=== PATIENT | female | born 1945 | race Caucasian/White ===

== ENCOUNTER 2016-12-14 13:29 | Outpatient (CLI) | payer MEDICARE, OTHER | END 2016-12-14 13:30 | disposition home or self-care (01) | DX: Z12.31 Encounter for screening mammogram for malignant neoplasm of breast (principal); Z80.3 Family history of malignant neoplasm of breast ==

== ENCOUNTER 2017-11-25 08:00 | Outpatient (CLI) | payer MEDICARE, OTHER ==
[2017-11-25 19:01] LABS: BASOPHILS # (AUTO) 0.1 10^3/uL (0.0-0.1); BASOPHILS % (AUTO) 1.3 %; EOSINOPHILS # (AUTO) 0.3 10^3/uL (0.0-0.7); EOSINOPHILS % (AUTO) 2.6 %; HGB - HEMOGLOBIN 12.5 g/dL (12.0-16.0); LYMPHOCYTES # (AUTO) 2.2 10^3/uL (1.5-3.5); MEAN CORPUSCULAR HEMOGLOBIN 24.1 pg (27.0-31.0); MEAN CORPUSCULAR HGB CONC 31.3 g/dL (32.0-36.0); MEAN CORPUSCULAR VOLUME 77.1 fL (81.0-99.0); MEAN PLATELET VOLUME 7.2 fL (7.9-10.8); MONOCYTES # (AUTO) 0.8 10^3/uL (0.0-1.0); MONOCYTES % (AUTO) 7.5 %; NEUTROPHILS # (AUTO) 6.7 10^3/uL (1.5-6.6); NEUTROPHILS % (AUTO) 66.6 %; PLT - PLATELET COUNT 443 10^3/uL (130-450); RED BLOOD COUNT 5.16 10^6/uL (4.20-5.40); RED CELL DISTRIBUTION WIDTH 15.6 % (12.0-15.0); WHITE BLOOD COUNT 10.1 x10^3/uL (4.8-10.8)
[2017-11-25 19:11] LABS: ALBUMIN 4.6 g/dL (3.2-5.5); ALBUMIN/GLOBULIN RATIO 1.5 (1.0-2.2); BILIRUBIN,TOTAL 0.4 mg/dL (0.2-1.0); CALCIUM 8.4 mg/dL (8.5-10.3); CREATININE 0.8 mg/dL (0.4-1.0); TOTAL PROTEIN 7.7 g/dL (6.7-8.2)
== END 2017-11-25 08:01 | disposition home or self-care (01) ==
LOC: LAB.WCP 08:00
PROVIDERS: ATTEND Family Medicine
DX: I10 Essential (primary) hypertension (principal)
CPT/HCPCS: 36415; 80053; 85025

== ENCOUNTER 2017-11-29 08:00 | Outpatient (CLI) | payer MEDICARE, OTHER ==
[2017-11-29 19:39] LABS: % IRON SATURATION 11 % (20-50); IRON 52 ug/dL (28-170); TOTAL IRON BINDING CAPACITY 469 ug/dL (250-450); TRANSFERRIN 335 mg/dL (192-382)
== END 2017-11-29 08:01 | disposition home or self-care (01) ==
LOC: LAB.WCP 08:00
PROVIDERS: ATTEND Family Medicine
DX: R71.8 Other abnormality of red blood cells (principal)
CPT/HCPCS: 36415; 82728; 83540; 84466

== ENCOUNTER 2017-12-15 13:14 | Outpatient (CLI) | payer MEDICARE, OTHER ==
--- NOTE | 2017-12-15 15:53 | CT Report ---
CT CHEST WITHOUT CONTRAST: 12/15/2017 CLINICAL INDICATION: A 72-year-old asymptomatic patient with [id number] history of smoking, current smoker for lung cancer screening. COMPARISON: No previous CT is available for comparison. TECHNIQUE: Axial CT images of the chest were obtained without IV contrast, using low-dose screening technique. FINDINGS: The heart and great vessels demonstrate mild atherosclerotic calcifications. No hilar or mediastinal lymphadenopathy is present. The lungs demonstrate multiple bilateral calcified granulomas. No suspicious noncalcified pulmonary nodule is seen. Minimal basilar atelectasis is present. No effusion or pneumothorax is present. Limited evaluation of upper abdominal structures demonstrates normal adrenal glands. Osseous structures demonstrate degenerative changes. IMPRESSION: BENIGN FINDINGS, WITH MULTIPLE BILATERAL CALCIFIED GRANULOMAS. RECOMMENDATION: Continue routine annual screening with low dose chest CT in 12 months. LUNG RADS CATEGORY 2 - BENIGN APPEARANCE. CT DOSE REDUCTION STATEMENT: In accordance with CT protocol optimization, one or more of the following dose reduction techniques were utilized for this exam: automated exposure control, adjustment of mA and/or KV based on patient size, or use of iterative reconstructive technique. TD: 12/15/2017 15:09 DUGLAS
== END 2017-12-15 13:15 | disposition home or self-care (01) ==
LOC: DI 13:14
PROVIDERS: ATTEND Family Medicine
DX: Z12.2 Encounter for screening for malignant neoplasm of respiratory organs (principal); Z87.891 Personal history of nicotine dependence

== ENCOUNTER 2018-01-05 11:34 | Day surgery (SDC) | payer MEDICARE, OTHER ==
[2018-01-05] MEDS ORDERED: LACTATED RINGERS 1,000 ML IV ONE (11:40)
[2018-01-05] MEDS ORDERED: fentaNYL 250 MCG/5 ML VIAL IVP ONE (12:50)
[2018-01-05] MEDS ORDERED: MIDAZOLAM 2 MG/2 ML VIAL IVP ONE (12:50)
[2018-01-05 14:04] VITALS: BP 142/43
== END 2018-01-05 11:35 | disposition home or self-care (01) ==
LOC: SDS 11:34
PROVIDERS: ATTEND Internal Medicine Gastroenterology
PROC: 0DBN8ZX Excision of Sigmoid Colon, Via Natural or Artificial Opening Endoscopic, Diagnostic (ICD-10-PCS; principal; 2018-01-05 12:45)
DX: D12.5 Benign neoplasm of sigmoid colon (principal); K57.30 Diverticulosis of large intestine without perforation or abscess without bleeding; K64.8 Other hemorrhoids; E78.5 Hyperlipidemia, unspecified; I10 Essential (primary) hypertension; F17.210 Nicotine dependence, cigarettes, uncomplicated
CPT/HCPCS: 45380; 93005; J3010; J7120

== ENCOUNTER 2018-08-17 06:43 | Day surgery (SDC) | payer MEDICARE, OTHER ==
[2018-08-17] MEDS ORDERED: LACTATED RINGERS 1,000 ML IV ONE (07:18)
[2018-08-17] MEDS ORDERED: LIDO GARGLE 30 ML BOTTLE ONE (08:04)
[2018-08-17] MEDS ORDERED: LIDO GARGLE 30 ML BOTTLE PO ONE (08:07)
[2018-08-17] MEDS ORDERED: fentaNYL 100 MCG/2 ML VIAL IVP ONE (08:20)
[2018-08-17] MEDS ORDERED: MIDAZOLAM 2 MG/2 ML VIAL IVP ONE (08:20)
[2018-08-17 08:56] VITALS: BP 110/45
== END 2018-08-17 06:44 | disposition home or self-care (01) ==
LOC: SDS 06:43
PROVIDERS: ATTEND Internal Medicine Gastroenterology
PROC: 0DB78ZX Excision of Stomach, Pylorus, Via Natural or Artificial Opening Endoscopic, Diagnostic (ICD-10-PCS; 2018-08-17)
PROC: 0DB98ZX Excision of Duodenum, Via Natural or Artificial Opening Endoscopic, Diagnostic (ICD-10-PCS; principal; 2018-08-17 08:00)
DX: K29.50 Unspecified chronic gastritis without bleeding (principal); D50.8 Other iron deficiency anemias; I10 Essential (primary) hypertension; F17.210 Nicotine dependence, cigarettes, uncomplicated; I49.1 Atrial premature depolarization; E78.5 Hyperlipidemia, unspecified; M81.0 Age-related osteoporosis without current pathological fracture; Z79.82 Long term (current) use of aspirin; Z79.51 Long term (current) use of inhaled steroids; J30.9 Allergic rhinitis, unspecified; Z86.010 Personal history of colon polyps
CPT/HCPCS: 43239; A9270; J7120

== ENCOUNTER 2018-11-09 13:23 | Outpatient (CLI) | payer MEDICARE, OTHER ==
--- NOTE | 2018-11-09 14:21 | Mammography Report ---
Reason: SCREENING MAMMO Procedure Date: 11/09/2018 Accession Number: [id number] / [id number] Procedure: MGN - Screening Mammo Dig Bilat CPT Code: FULL RESULT: EXAM: Screening Mammo Dig Bilat DATE: 11/09/2018 2:01 PM CLINICAL HISTORY: Screening encounter. Family history of breast cancer in the mother in her 40s. TECHNIQUE: Bilateral CC and MLO views were obtained. COMPARISON: 12/14/2016 through 07/03/2013. FINDINGS: The breasts demonstrate scattered fibroglandular densities bilaterally. There are coarse typically benign calcifications. No suspicious masses, clustered microcalcifications, or regions of architectural distortion are identified. IMPRESSION: Benign findings RECOMMENDATION: Routine annual screening unless otherwise clinically indicated. BIRADS CATEGORY 2: Benign findings STANDARD QUALIFYING STATEMENTS: 1. This examination was reviewed with the aid of Computer-Aided Detection (CAD). 2. A negative or benign imaging report should not delay biopsy if clinically suspicious findings are present. Consider surgical consultation if warrented. More than 5% of cancers are not identified by imaging. 3. Dense breasts may obscure an underlying neoplasm.
== END 2018-11-09 13:24 | disposition home or self-care (01) ==
LOC: DI.N 13:23
DX: Z12.31 Encounter for screening mammogram for malignant neoplasm of breast (principal); Z80.3 Family history of malignant neoplasm of breast
CPT/HCPCS: 77067

== ENCOUNTER 2019-03-06 10:11 | Outpatient (CLI) | payer MEDICARE, OTHER ==
[2019-03-06 12:24] LABS: BASOPHILS # (AUTO) 0.1 10^3/uL (0.0-0.1); BASOPHILS % (AUTO) 1.3 %; EOSINOPHILS # (AUTO) 0.4 10^3/uL (0.0-0.7); EOSINOPHILS % (AUTO) 5.3 %; HGB - HEMOGLOBIN 13.3 g/dL (12.0-16.0); LYMPHOCYTES # (AUTO) 2.4 10^3/uL (1.5-3.5); LYMPHOCYTES % (AUTO) 28.8 %; MEAN CORPUSCULAR HEMOGLOBIN 26.7 pg (27.0-31.0); MEAN CORPUSCULAR HGB CONC 32.2 g/dL (32.0-36.0); MEAN CORPUSCULAR VOLUME 82.8 fL (81.0-99.0); MEAN PLATELET VOLUME 9.4 fL (7.9-10.8); MONOCYTES # (AUTO) 0.8 10^3/uL (0.0-1.0); MONOCYTES % (AUTO) 9.5 %; NEUTROPHILS # (AUTO) 4.5 10^3/uL (1.5-6.6); NEUTROPHILS % (AUTO) 54.6 %; PLT - PLATELET COUNT 431 10^3/uL (130-450); RED BLOOD COUNT 4.99 10^6/uL (4.20-5.40); RED CELL DISTRIBUTION WIDTH 14.3 % (12.0-15.0); WHITE BLOOD COUNT 8.3 x10^3/uL (4.8-10.8)
[2019-03-06 12:47] LABS: BUN - BLOOD UREA NITROGEN 10 mg/dL (6-20); CARBON DIOXIDE - CO2 24 mmol/L (21-32); CHLORIDE 99 mmol/L (101-111); CREATININE 0.7 mg/dL (0.4-1.0); GFR - MDRD 82 (>89); GLUCOSE 93 mg/dL (70-100); IRON 111 ug/dL (28-170); SODIUM 136 mmol/L (135-145); TOTAL IRON BINDING CAPACITY 332 ug/dL (250-450)
[2019-03-06 12:48] LABS: % IRON SATURATION 33 % (20-50); ALBUMIN 4.3 g/dL (3.2-5.5); ALBUMIN/GLOBULIN RATIO 1.4 (1.0-2.2); ALKALINE PHOSPHATASE 43 IU/L (42-121); ALT ALANINE AMINOTRANSFERASE 20 IU/L (10-60); AST ASPARTATE AMINOTRANSFERASE 20 IU/L (10-42); BILIRUBIN,TOTAL 0.6 mg/dL (0.2-1.0); CHOL/HDL RATIO 4.5 (<4.4); CHOLESTEROL 212 mg/dL; HDL CHOLESTEROL 47 mg/dL; LDL CHOLESTEROL,CALCULATED 142 mg/dL; TOTAL PROTEIN 7.3 g/dL (6.7-8.2); TRANSFERRIN 237 mg/dL (192-382); VLDL CHOLESTEROL 23 mg/dL
[2019-03-06 12:58] LABS: FERRITIN 28.8 ng/mL (11.0-306.8)
== END 2019-03-06 23:59 | disposition home or self-care (01) ==
LOC: LAB.WCP 10:11
PROVIDERS: ATTEND Family Medicine
DX: D50.9 Iron deficiency anemia, unspecified (principal); E78.5 Hyperlipidemia, unspecified; I10 Essential (primary) hypertension
CPT/HCPCS: 36415; 80053; 80061; 82728; 83540; 83721; 84443; 84466; 85025

== ENCOUNTER 2019-05-22 08:00 | Outpatient (CLI) | payer MEDICARE, OTHER ==
[2019-05-22 19:02] LABS: CREATININE 0.9 mg/dL (0.4-1.0)
== END 2019-05-22 23:59 | disposition home or self-care (01) ==
LOC: LAB.WCP 08:00
PROVIDERS: ATTEND Family Medicine
DX: I10 Essential (primary) hypertension (principal)
CPT/HCPCS: 36415; 80048

== ENCOUNTER 2019-09-03 12:41 | Outpatient (CLI) | payer MEDICARE, OTHER ==
--- NOTE | 2019-09-04 15:34 | CT Report ---
Reason: TOBACCO DEPENDENCE Procedure Date: 09/03/2019 Accession Number: [id number] / [id number] Procedure: CT - Low Dose Lung Cancer Screen CPT Code: Final Report FULL RESULT: EXAM CT LUNG SCREEN EXAM DATE: 09/03/2019 01:10 PM. HISTORY: 73-year-old patient with [id number] smoking history. Currently smoking: Yes. COMPARISON: CHEST SCREEN LOW DOSE W/O 12/15/2017 1:32 PM. TECHNIQUE: CT examination of the entire thorax without contrast was performed using low-dose technique. Thin section coronal, axial, sagittal and MIP axial images were obtained. In accordance with CT protocol optimization, one or more of the following dose reduction techniques were utilized for this exam: automated exposure control, adjustment of mA and/or KV based on patient size, or use of iterative reconstructive technique. FINDINGS: Nodules: Scattered bilateral upper and lower lobe calcified granulomas. Noncalcified nodules: Right upper lobe: None. Right middle lobe: None. Right lower lobe: None. Left upper lobe: None. Left lower lobe: None. Emphysema: None. Pleura: Unremarkable. Aorta: Moderate atherosclerotic calcifications of the aortic arch and visualized proximal abdominal aorta. Mild descending thoracic aortic calcification. No aneurysm or intramural aortic hematoma. Mediastinum: Unremarkable. Coronary calcifications: Prominent circumflex coronary arterial calcification. Other pulmonary findings: None. Other extrapulmonary findings: Mild scoliosis. IMPRESSION: Lung-RADS ASSESSMENT CATEGORY: 2 - benign appearance. Probability of malignancy: Less than 1%. RECOMMENDATION: Continue annual screening with LDCT in 12 months. RADIA
== END 2019-09-03 12:42 | disposition home or self-care (01) ==
LOC: DI 12:41
PROVIDERS: ATTEND Family Medicine
DX: Z12.2 Encounter for screening for malignant neoplasm of respiratory organs (principal); F17.210 Nicotine dependence, cigarettes, uncomplicated

== ENCOUNTER 2019-10-23 13:21 | Outpatient (CLI) | payer MEDICARE, OTHER ==
--- NOTE | 2019-10-23 15:07 | Mammography Report ---
Reason: ROUTINE MAMMO Procedure Date: 10/23/2019 Accession Number: [id number] / [id number] Procedure: MGN - Screening Mammo w/Daryn CPT Code: Final Report FULL RESULT: EXAM: Screening Mammo w/Daryn DATE: 10/23/2019 1:47 PM CLINICAL HISTORY: Screening encounter. Family history of breast cancer in the mother at the age of 45 and a maternal aunt at the age of 80. TECHNIQUE: (B) - Bilateral CC and MLO views were obtained. COMPARISON: 11/01/2018 through 07/03/2013. PARENCHYMAL PATTERN: (A) - The breast(s) demonstrate(s) scattered fibroglandular densities. FINDINGS: There are no suspicious masses, calcifications, or areas of distortion. IMPRESSION: Negative examination. BI-RADS category 1. RECOMMENDATION: (ANNUAL) - Recommend routine annual screening mammography. BI-RADS CATEGORY: (1) - Negative. STANDARD QUALIFYING STATEMENTS: 1. This examination was not reviewed with the aid of Computer-Aided Detection (CAD). 2. A negative or benign imaging report should not preclude biopsy if clinically suspicious findings are present. 3. Dense breasts may obscure an underlying neoplasm. 4. This examination was reviewed with the aid of 3D breast imaging (tomosynthesis).
== END 2019-10-23 13:22 | disposition home or self-care (01) ==
LOC: DI.N 13:21
DX: Z12.31 Encounter for screening mammogram for malignant neoplasm of breast (principal); Z80.3 Family history of malignant neoplasm of breast
CPT/HCPCS: 77063; 77067

== ENCOUNTER 2020-07-15 08:00 | Outpatient (CLI) | payer MEDICARE, OTHER ==
[2020-07-15 18:30] LABS: BASOPHILS # (AUTO) 0.1 10^3/uL (0.0-0.1); BASOPHILS % (AUTO) 0.9 %; EOSINOPHILS # (AUTO) 0.4 10^3/uL (0.0-0.7); EOSINOPHILS % (AUTO) 3.7 %; HGB - HEMOGLOBIN 11.9 g/dL (12.0-16.0); LYMPHOCYTES # (AUTO) 1.8 10^3/uL (1.5-3.5); LYMPHOCYTES % (AUTO) 18.9 %; MEAN CORPUSCULAR HEMOGLOBIN 26.4 pg (27.0-31.0); MEAN CORPUSCULAR HGB CONC 31.8 g/dL (32.0-36.0); MEAN CORPUSCULAR VOLUME 83.1 fL (81.0-99.0); MEAN PLATELET VOLUME 9.1 fL (7.9-10.8); MONOCYTES # (AUTO) 0.8 10^3/uL (0.0-1.0); MONOCYTES % (AUTO) 8.3 %; NEUTROPHILS # (AUTO) 6.6 10^3/uL (1.5-6.6); NEUTROPHILS % (AUTO) 67.5 %; PLT - PLATELET COUNT 430 10^3/uL (130-450); RED CELL DISTRIBUTION WIDTH 13.9 % (12.0-15.0); WHITE BLOOD COUNT 9.7 x10^3/uL (4.8-10.8)
[2020-07-15 18:50] LABS: ALBUMIN 4.7 g/dL (3.2-5.5); ALBUMIN/GLOBULIN RATIO 1.5 (1.0-2.2); ALKALINE PHOSPHATASE 51 IU/L (42-121); ALT ALANINE AMINOTRANSFERASE 21 IU/L (10-60); AST ASPARTATE AMINOTRANSFERASE 19 IU/L (10-42); BILIRUBIN,TOTAL 0.8 mg/dL (0.2-1.0); BUN - BLOOD UREA NITROGEN 22 mg/dL (6-20); CALCIUM 9.5 mg/dL (8.5-10.3); CARBON DIOXIDE - CO2 24 mmol/L (21-32); CHLORIDE 91 mmol/L (101-111); CHOL/HDL RATIO 4.1 (<4.4); CHOLESTEROL 209 mg/dL; CREATININE 1.2 mg/dL (0.4-1.0); GLUCOSE 101 mg/dL (70-100); HDL CHOLESTEROL 51 mg/dL; LDL CHOLESTEROL,CALCULATED 134 mg/dL; LDL/HDL RATIO 2.6 (<4.4); SODIUM 127 mmol/L (135-145); TOTAL PROTEIN 7.8 g/dL (6.7-8.2); VLDL CHOLESTEROL 24 mg/dL
== END 2020-07-15 23:59 | disposition home or self-care (01) ==
LOC: LAB.WCP 08:00
PROVIDERS: ATTEND Family Medicine
DX: E87.1 Hypo-osmolality and hyponatremia (principal); E78.5 Hyperlipidemia, unspecified; I10 Essential (primary) hypertension
CPT/HCPCS: 36415; 80053; 80061; 83721; 84443; 85025

== ENCOUNTER 2020-07-24 08:00 | Outpatient (CLI) | payer MEDICARE, OTHER ==
[2020-07-24 18:22] LABS: ALBUMIN 4.5 g/dL (3.2-5.5); ALBUMIN/GLOBULIN RATIO 1.6 (1.0-2.2); BILIRUBIN,TOTAL 0.8 mg/dL (0.2-1.0); CALCIUM 9.4 mg/dL (8.5-10.3); CREATININE 1.1 mg/dL (0.4-1.0); TOTAL PROTEIN 7.3 g/dL (6.7-8.2)
== END 2020-07-24 23:59 | disposition home or self-care (01) ==
LOC: LAB.WCP 08:00
PROVIDERS: ATTEND Family Medicine
DX: E87.1 Hypo-osmolality and hyponatremia (principal)
CPT/HCPCS: 36415; 80053

== ENCOUNTER 2020-07-28 13:11 | Outpatient (CLI) | payer MEDICARE, OTHER ==
[2020-07-28 19:32] LABS: ALBUMIN 4.8 g/dL (3.2-5.5); ALBUMIN/GLOBULIN RATIO 1.6 (1.0-2.2); BILIRUBIN,TOTAL 0.8 mg/dL (0.2-1.0); CALCIUM 9.7 mg/dL (8.5-10.3); TOTAL PROTEIN 7.8 g/dL (6.7-8.2)
== END 2020-07-28 23:59 | disposition home or self-care (01) ==
LOC: LAB.WCP 13:11
PROVIDERS: ATTEND Internal Medicine
DX: E87.5 Hyperkalemia (principal)
CPT/HCPCS: 36415; 80053

== ENCOUNTER 2020-08-18 08:00 | Outpatient (CLI) | payer MEDICARE, OTHER ==
[2020-08-18 18:56] LABS: CALCIUM 9.6 mg/dL (8.5-10.3); CREATININE 0.9 mg/dL (0.4-1.0)
== END 2020-08-18 23:59 | disposition home or self-care (01) ==
LOC: LAB.WCP 08:00
PROVIDERS: ATTEND Family Medicine
DX: E87.5 Hyperkalemia (principal)
CPT/HCPCS: 36415; 80048

== ENCOUNTER 2020-12-09 08:00 | Outpatient (CLI) | payer MEDICARE, OTHER ==
[2020-12-09 18:26] LABS: BUN - BLOOD UREA NITROGEN 18 mg/dL (6-20); CALCIUM 9.2 mg/dL (8.5-10.3); CARBON DIOXIDE - CO2 24 mmol/L (21-32); CHLORIDE 93 mmol/L (101-111); CHOL/HDL RATIO 4.8 (<4.4); CHOLESTEROL 200 mg/dL; CREATININE 1.1 mg/dL (0.4-1.0); GFR - MDRD 48 (>89); GLUCOSE 103 mg/dL (70-100); HDL CHOLESTEROL 42 mg/dL; LDL CHOLESTEROL,CALCULATED 131 mg/dL; LDL/HDL RATIO 3.1 (<4.4); POTASSIUM 5.4 mmol/L (3.5-5.0); SODIUM 127 mmol/L (135-145); TRIGLYCERIDES 133 mg/dL; VLDL CHOLESTEROL 27 mg/dL
[2020-12-09 18:27] LABS: THYROID STIMULATING HORMONE 1.58 uIU/mL (0.34-5.60)
== END 2020-12-09 23:59 | disposition home or self-care (01) ==
LOC: LAB.WCP 08:00
PROVIDERS: ATTEND Internal Medicine
DX: E87.1 Hypo-osmolality and hyponatremia (principal); E78.5 Hyperlipidemia, unspecified; M85.80 Other specified disorders of bone density and structure, unspecified site
CPT/HCPCS: 36415; 80048; 80061; 82306; 82533; 83721; 83930; 83935; 84300; 84443

== ENCOUNTER 2021-05-22 08:00 | Outpatient (CLI) | payer MEDICARE, OTHER ==
[2021-05-22 18:09] LABS: BILIRUBIN,URINE NEGATIVE (NEGATIVE); GLUCOSE, URINE (UA) NEGATIVE (NEGATIVE); KETONES,URINE (UA) TRACE mg/dL (NEGATIVE); LEUKOCYTE ESTERASE, URINE NEGATIVE (NEGATIVE); NITRITE,URINE NEGATIVE (NEGATIVE); OCCULT BLOOD,URINE NEGATIVE (NEGATIVE); PH,URINE 5.5 PH (5.0-7.5); PROTEIN,URINE NEGATIVE (NEGATIVE); UROBILINOGEN,URINE 0.2 (NORMAL) E.U./dL (NORMAL)
[2021-05-22 18:39] LABS: AMORPHOUS SEDIMENT,UR Rare /LPF; BACTERIA,URINE Few /HPF (None Seen); CLARITY,URINE HAZY (CLEAR); RBC,URINE None Seen /HPF (0-5); SQUAMOUS EPITHELIAL CELL,UR MANY Squamous (<= Few); STARCH,URINE PRESENT; WBC,URINE 0-3 /HPF (0-5)
== END 2021-05-22 23:59 | disposition home or self-care (01) ==
LOC: LAB.WCP 08:00
PROVIDERS: ATTEND Internal Medicine
DX: R30.0 Dysuria (principal)
CPT/HCPCS: 81001; 87086

== ENCOUNTER 2021-06-11 12:31 | Outpatient (CLI) | payer MEDICARE, OTHER ==
--- NOTE | 2021-06-16 12:08 | DEXA Report ---
PROCEDURE: Dexa Spine and/or Hip INDICATIONS: ASYMPTOMATIC POSTMENOPAUSAL STATUS TECHNIQUE: Dual energy x-ray absorptiometry (DXA) was performed on a [employer] System. Regions measur ed are the AP Spine, femoral neck, and if needed forearm. COMPARISON: 05/18/2016 FINDINGS: Lumbar Spine: Bone Mineral Density 0.929 g/cm/cm,T score -2.1, osteopenia Left Femoral Neck: Bone Mineral Density 0.795 g/cm/cm, T score -1.7, osteopenia (T score greater or equal to -1.0: NORMAL) (T score from -1.1 to -2.4: OSTEOPENIA) (T score less than or equal to -2.5 to: OSTEOPOROSIS) Impression: OSTEOPENIA. Patient is at increased risk for fracture Patients with diagnosis of osteoporosis or osteopenia should have regular bone mineral density assess ment. For those eligible for Medicare, routine testing is allowed once every 2 years. Testing frequ ency can be increased for patients who have rapidly progressing disease or for those who are receivin g medical therapy to restore bone mass. Reviewed by: Shahram Hudson MD on 06/16/2021 12:07 PM PDT Approved by: Shahram Hudson MD on 06/16/2021 12:07 PM PDT Station ID: [id number]
== END 2021-06-11 12:32 | disposition home or self-care (01) ==
LOC: DI 12:31
PROVIDERS: ATTEND Family Medicine
DX: M85.88 Other specified disorders of bone density and structure, other site (principal); Z78.0 Asymptomatic menopausal state

== ENCOUNTER 2021-06-15 14:29 | Outpatient (CLI) | payer MEDICARE, OTHER ==
--- NOTE | 2021-06-23 13:45 | Mammography Report ---
BILATERAL DIGITAL SCREENING MAMMOGRAM 3D/2D: 06/15/2021 CLINICAL: Family history of breast cancer. Routine screening. Comparison is made to exams dated: 10/23/2019 mammogram, 11/09/2018 mammogram, 12/14/2016 mammogram, 06/2014 mammogram, 07/03/2013 mammogram, and 07/11/2012 mammogram - [facility]. Th e tissue of both breasts is predominantly fatty. No significant masses, calcifications, or other findings are seen in either breast. There has been no significant interval change. IMPRESSION: NEGATIVE There is no mammographic evidence of malignancy. A 1 year screening mammogram is recommended. This exam was interpreted at Station ID: [id number]. NOTE: For mammograms, a report in lay terms will be sent to the patient. Approximately 15% of breast malignancies will not be visualized mammographically. In the management of a palpable breast mass, a negative mammogram must not discourage biopsy of a clinically suspicious lesion. Electronically Signed By: Lázaro Rosado M.D., jr/norberto:06/22/2021 15:21:58 ACR BI-RADS Category 1: Negative 3341F PARENCHYMAL PATTERN: (F) - The breast(s) demonstrate(s) diffuse fatty replacement. BI-RADS CATEGORY: (1) - 1 RECOMMENDATION: (ANNUAL) - Recommend routine annual screening mammography. [id number] 1 year screening LATERALITY: (B)
== END 2021-06-15 14:30 | disposition home or self-care (01) ==
LOC: DI.N 14:29
DX: Z12.31 Encounter for screening mammogram for malignant neoplasm of breast (principal); Z80.3 Family history of malignant neoplasm of breast

== ENCOUNTER 2022-01-05 13:12 | Outpatient (CLI) | payer MEDICARE, OTHER ==
--- NOTE | 2022-01-05 16:55 | CT Report ---
PROCEDURE: Low Dose Lung Cancer Screen INDICATIONS: HIST OF SMOKING TECHNIQUE: Noncontrast low-dose images were acquired from the pulmonary apices to the posterior costophrenic ang les. Multiplanar MIP reformats were then acquired. For radiation dose reduction, the following was used: automated exposure control, adjustment of mA and/or kV according to patient size. COMPARISON: CT chest 09/03/2019 FINDINGS: Image quality: Excellent. Lungs and pleura: Scattered calcified granulomas are present bilaterally. No effusions or consolidat ions. Mediastinum: Heart size is normal. No pericardial effusion. No mediastinal adenopathy by size crit eria. Thoracic aorta and central pulmonary arteries are normal in size. Esophagus is normal in adilia ed. No hiatal hernia. Bones and chest wall: No suspicious bony lesions. No vertebral body compression fractures. No axil ken or supraclavicular adenopathy by size criteria. The thyroid is normal in size and there are no incidental findings. Abdomen: Visualized upper abdomen solid organs and bowel loops appear normal in the absence of contr ast. IMPRESSION: Stable calcified granulomas. No noncalcified masses are identified. Lung rads category 1. Recommend annual screening. CLINICAL RECOMMENDATION STATEMENTS: In patients <35 years with an ITN detected on CT, MRI, or extrathyroidal ultrasound, the Committee re commends further evaluation with dedicated thyroid ultrasound if the nodule is "e1 cm and has no susp icious imaging features, and if the patient has normal life expectancy. In patients "e35 years with an ITN detected on CT, MRI, or extrathyroidal ultrasound, the Committee r ecommends further evaluation with dedicated thyroid ultrasound if the nodule is "e1.5 cm and has no s uspicious imaging features, and if the patient has normal life expectancy. (ACR, 2014) Reviewed by: Jazlyn Resendez MD on 01/05/2022 4:54 PM PDT Approved by: Jazlyn Resendez MD on 01/05/2022 4:54 PM PDT Station ID: [id number]
== END 2022-01-05 13:13 | disposition home or self-care (01) ==
LOC: DI 13:12
PROVIDERS: ATTEND Internal Medicine
DX: Z12.2 Encounter for screening for malignant neoplasm of respiratory organs (principal); J84.10 Pulmonary fibrosis, unspecified; Z87.891 Personal history of nicotine dependence

== ENCOUNTER 2022-03-04 14:08 | Outpatient (CLI) | payer MEDICARE, OTHER | END 2022-03-04 14:09 | disposition home or self-care (01) | LOC: MAC.MOP 14:08 | PROVIDERS: ATTEND Internal Medicine | DX: R55 Syncope and collapse (principal); Z98.890 Other specified postprocedural states | CPT/HCPCS: 93246 ==

== ENCOUNTER 2024-06-27 07:14 | Inpatient (IN) ==
--- NOTE | 2024-06-27 07:30 | ED Physician Documentation ---
PD HPI FOCAL NEURO Stated complaint Stated Complaint: CODE STROKE Chief complaint Chief Complaint: Neuro History obtained from History obtained from: Patient, Family (Info from her son through EMS is he heard a noise during the night and apparently she had fallen and had been there for few hours. She was very confused. He could not get her up. Called EMS and they noted her very confused. No focal weakness. No obvious head injury.) and EMS History of Present Illness Timing - onset: Last night Timing - duration: Hours Timing - details: Abrupt onset Severity of deficit: Moderate Associated symptoms: Fall and Other (confused to name, mumbling speech. ); No Headache or Nausea / vomiting Contributing factors: negative Anticoagulated or Atrial fibrillation (No history of atrial fibrillation in the past but she is in it currently with a fast rate per EMS and initially here approximately 120.) Baseline status: positive A&OX3, ambulatory, indep and Walker Similar symptoms before: Has not had sx before Emmanuel Coma Scale Assess Eye opening: Spontaneous Verbal response: Confused Motor response: Obeys Commands Total score: 14 Review of Systems Denies recent cold or cough or flu symptoms. No fever or chills. No vomiting diarrhea. Meds/Allgy Home Medications Ambulatory Orders Medication Instructions Recorded Confirmed lisinopril 20 mg tablet 20 mg PO BID 01/28/15 06/27/24 cetirizine 10 mg tablet 10 mg PO DAILY PRN Allergy Symptoms 01/04/18 06/27/24 aspirin 81 mg tablet,delayed 81 mg PO DAILY 01/05/18 06/27/24 release (Adult Aspirin Regimen) lactulose 10 gram/15 mL (15 mL) 15 ml PO QDAY #450 mL 05/27/24 06/27/24 oral solution amlodipine 2.5 mg tablet 2.5 mg PO DAILY 06/27/24 06/27/24 atorvastatin 40 mg tablet 40 mg PO QPM 06/27/24 06/27/24 metoprolol succinate 50 mg 75 mg PO DAILY 06/27/24 06/27/24 tablet,extended release 24 hr Allergies Allergies Allergy/AdvReac Type Severity Reaction Status Date / Time morphine Allergy Unknown Unknown Verified 06/27/24 10:55 Sulfa (Sulfonamide Allergy Unknown Unknown Verified 06/27/24 10:54 Antibiotics) [facility] Medical History Medical History (Updated 06/27/24 @ 13:48 by Angel Hinojosa) Osteopenia Lumbar disc disorder Sigmoid diverticulosis TIA (transient ischemic attack) Hyperlipemia Hypertension Surgical History Surgical History (Updated 06/27/24 @ 11:00 by Angel Hinojosa) Hx of appendectomy Hx of cholecystectomy Family History Family History (Updated 06/27/24 @ 11:01 by Angel Hinojosa) Mother CVA (cerebral vascular accident) Uterine cancer Social History Social History Smoking Status: Current every day smoker How many cigarettes a day do you smoke? (20 cigarettes=1 Pk): 30 Relationship: Level: Assisted Home Mobility Equipment: Wheeled walker Do you feel safe in your home environment?: Yes Suffered physical, verbal, emotional, or financial abuse?: No History of Abuse: No POLST Patient has POLST: No Exam Constitutional abnormal general appearance (disheveled) and (frail appearing) and average body habitus HENMT normocephalic and head/scalp atraumatic Eyes PERRL and EOMs intact bilaterally Lymph no lymphadenopathy noted Chest inspection of chest normal and palpation of chest normal Respiratory breath sounds equal bilaterally and normal respiratory effort Cardiovascular heart rate abnormal (tachycardic) and rhythm abnormal (irregular) Gastrointestinal abdomen soft to palpation and nontender to palpation Back/Pelvis no thoracic spine tenderness and no lumbar spine tenderness Extremities no tenderness Neurology no movement abnormality noted, no focal motor deficit noted, no sensory deficits noted and GCS calculation - Eye opening: Spontaneous Verbal response: Confused Motor response: Obeys Commands Emmanuel Coma Scale total score: 14 Results Vitals Vitals: Vital Signs - 24 hr 06/27/24 07:18 06/27/24 07:41 06/27/24 07:45 Temperature 36.2 C L Pulse Rate 112 H 110 H Respiratory Rate 18 23 Blood Pressure 174/94 H 153/100 H O2 Saturation 95 92 O2 Source Room air Room air Pain Intensity 5 5 5 06/27/24 08:11 06/27/24 08:14 06/27/24 09:00 Temperature Pulse Rate 82 78 Respiratory Rate 22 20 Blood Pressure 144/91 H 121/70 O2 Saturation 92 92 O2 Source Room air Room air Pain Intensity 0 0 0 06/27/24 09:30 Temperature Pulse Rate 78 Respiratory Rate 20 Blood Pressure 143/91 H O2 Saturation 92 O2 Source Room air Pain Intensity 0 Oxygen O2 Source Room air Labs Labs: Laboratory Tests 06/27/24 06/27/24 06/27/24 07:21 07:46 09:45 WBC 13.9 H RBC 5.30 Hgb 12.4 Hct 40.0 MCV 75.5 L MCH 23.4 L MCHC 31.0 L RDW 15.2 H Plt Count 420 MPV 9.4 Neut # (Auto) 10.3 H Lymph # (Auto) 2.0 Loíza # (Auto) 1.4 H Eos # (Auto) 0.0 Baso # (Auto) 0.1 Absolute Nucleated RBC 0.00 Nucleated RBC % 0.0 ESR 16 Sodium 132 L Potassium 3.3 L Chloride 94 L Carbon Dioxide 26 Anion Gap 12.0 BUN 28 H Creatinine 1.2 Estimated GFR (MDRD) 43 L Glucose 112 H Calcium 9.5 Magnesium 1.8 Total Bilirubin 1.8 H AST 28 ALT 17 Alkaline Phosphatase 69 Ammonia 19.1 Total Creatine Kinase 349 H B-Natriuretic Peptide 850 H Total Protein 7.5 Albumin 4.7 Globulin 2.8 Albumin/Globulin Ratio 1.7 Lipase 11 TSH 0.95 Urine Color DARK YELLOW Urine Clarity CLEAR Urine pH 6.5 Ur Specific Hayes 1.020 Urine Protein 100 H Urine Glucose (UA) NEGATIVE Urine Ketones 15 H Urine Occult Blood NEGATIVE Urine Nitrite NEGATIVE Urine Bilirubin MODERATE H Urine Urobilinogen 1 (NORMAL) Ur Leukocyte Esterase NEGATIVE Urine RBC 0-5 Urine WBC 0-3 Ur Squamous Epith Cells RARE Squamous Urine Bacteria Moderate H Urine Casts 0-2 Hyaline Casts Urine Mucus Ur Microscopic Review Urine Culture Comments Urine Opiates Screen Ur Buprenorphine Scrn Ur Oxycodone Screen Urine Methadone Screen Ur Barbiturates Screen Ur Tricyclics Screen Ur Phencyclidine Scrn Ur Amphetamine Screen U Methamphetamines Scrn U Benzodiazepines Scrn Urine Cocaine Screen U Cannabinoids Screen Ur Drug Screen Comment Ethyl Alcohol < 10.0 06/27/24 06/27/24 09:45 09:45 WBC RBC Hgb Hct MCV MCH MCHC RDW Plt Count MPV Neut # (Auto) Lymph # (Auto) Loíza # (Auto) Eos # (Auto) Baso # (Auto) Absolute Nucleated RBC Nucleated RBC % ESR Sodium Potassium Chloride Carbon Dioxide Anion Gap BUN Creatinine Estimated GFR (MDRD) Glucose Calcium Magnesium Total Bilirubin AST ALT Alkaline Phosphatase Ammonia Total Creatine Kinase B-Natriuretic Peptide Total Protein Albumin Globulin Albumin/Globulin Ratio Lipase TSH Urine Color Urine Clarity Urine pH Ur Specific Hayes Urine Protein Urine Glucose (UA) Urine Ketones Urine Occult Blood Urine Nitrite Urine Bilirubin Urine Urobilinogen Ur Leukocyte Esterase Urine RBC Urine WBC Ur Squamous Epith Cells Urine Bacteria Urine Casts 3-5 Cellular Casts 0-2 Waxy Casts Urine Mucus Few Strands Ur Microscopic Review INDICATED Urine Culture Comments NOT INDICATED Urine Opiates Screen NEGATIVE Ur Buprenorphine Scrn NEGATIVE Ur Oxycodone Screen NEGATIVE Urine Methadone Screen NEGATIVE Ur Barbiturates Screen NEGATIVE Ur Tricyclics Screen NEGATIVE Ur Phencyclidine Scrn NEGATIVE Ur Amphetamine Screen NEGATIVE U Methamphetamines Scrn NEGATIVE U Benzodiazepines Scrn NEGATIVE Urine Cocaine Screen NEGATIVE U Cannabinoids Screen NEGATIVE Ur Drug Screen Comment CUTOFF CONC BELOW: Ethyl Alcohol PD Medical Decision Making ED course Complexity details: reviewed results (head CT nd CTA without acute process. Denise tebral vessel one side with moderate stenosis. FLow distally is good. ECG with atrial fib and prior ones are NSR. Labs have okay sodium and glucose. ), considered differential (CVA vs low BP transient from atrial fib. Consider fall/syncope with concussion, lytes/glucose problems, among other.), d/w patient and d/w building performance consultant (Hospitalist for eval of atrial fib, new onset, and cause of confusion/sycnope. Presume MRI. Given ASA here. ) Discharge Plan Discharge Patient Disposition: 66 [facility] DC/Xfer Condition: Stable Clinical Impression: Acute confusion, Atrial fibrillation, new onset Interventions: ED Admission Assessment Last Done: 06/27/24 11:04
[2024-06-27 07:40] LABS: BASOPHILS # (AUTO) 0.1 10^3/uL (0.0-0.1); BASOPHILS % (AUTO) 0.4 %; EOSINOPHILS % (AUTO) 0.1 %; HGB - HEMOGLOBIN 12.4 g/dL (12.0-16.0); LYMPHOCYTES % (AUTO) 14.4 %; MEAN CORPUSCULAR HEMOGLOBIN 23.4 pg (27.0-31.0); MEAN CORPUSCULAR VOLUME 75.5 fL (81.0-99.0); MEAN PLATELET VOLUME 9.4 fL (7.9-10.8); MONOCYTES # (AUTO) 1.4 10^3/uL (0.0-1.0); MONOCYTES % (AUTO) 10.1 %; NEUTROPHILS # (AUTO) 10.3 10^3/uL (1.5-6.6); NEUTROPHILS % (AUTO) 74.4 %; PLT - PLATELET COUNT 420 10^3/uL (130-450); RED CELL DISTRIBUTION WIDTH 15.2 % (12.0-15.0); WHITE BLOOD COUNT 13.9 x10^3/uL (4.8-10.8)
[2024-06-27 07:42] LABS: ALBUMIN 4.7 g/dL (3.2-5.5); ALBUMIN/GLOBULIN RATIO 1.7 (1.0-2.2); ALKALINE PHOSPHATASE 69 IU/L (42-121); ALT ALANINE AMINOTRANSFERASE 17 IU/L (10-60); AST ASPARTATE AMINOTRANSFERASE 28 IU/L (10-42); BILIRUBIN,TOTAL 1.8 mg/dL (0.2-1.0); BUN - BLOOD UREA NITROGEN 28 mg/dL (6-20); CALCIUM 9.5 mg/dL (8.5-10.3); CARBON DIOXIDE - CO2 26 mmol/L (21-32); CHLORIDE 94 mmol/L (101-111); CREATININE 1.2 mg/dL (0.6-1.3); ETOH - ETHANOL < 10.0 mg/dL; GFR - MDRD 43 (>89); GLUCOSE 112 mg/dL (74-104); LIPASE 11 U/L (11-82); MAGNESIUM 1.8 mg/dL (1.7-2.3); POTASSIUM 3.3 mmol/L (3.5-4.5); SODIUM 132 mmol/L (135-145); TOTAL PROTEIN 7.5 g/dL (6.4-8.9)
[2024-06-27] MEDS ORDERED: iohexoL-300 100 ML VIAL ONE (07:43)
[2024-06-27] MEDS: KETOROLAC 15 MG/ML VIAL IVP STA (07:45)
[2024-06-27] MEDS: METOPROLOL 5 MG/5 ML VIAL IVP STA (07:46)
[2024-06-27 08:13] LABS: THYROID STIMULATING HORMONE 0.95 uIU/mL (0.34-5.60)
[2024-06-27] MEDS: iohexoL-300 100 ML VIAL IVP ONE (08:15)
--- NOTE | 2024-06-27 08:35 | CT Report ---
PROCEDURE: CT Head WO INDICATIONS: trouble speaking/confused abrupt overnight TECHNIQUE: Noncontrast 4.5 mm thick angled axial sections acquired from the foramen magnum to the vertex. For r adiation dose reduction, the following was used: automated exposure control, adjustment of mA and/or kV according to patient size. COMPARISON: None. FINDINGS: Image quality: Excellent. CSF spaces: Basal cisterns are patent. No extra-axial fluid collections. Ventricles are normal in size and shape. Brain: No midline shift. No intracranial masses or hemorrhage. Landry-white matter interface is norm al. Intracranial carotid calcifications. Age-related volume loss and moderate to severe small vessel ischemic change. Skull and face: Calvarium and visualized facial bones are intact, without suspicious lesions. Sinuses: Visualized sinuses and mastoids are clear. IMPRESSION: No acute intracranial pathology. Age-related volume loss and small vessel ischemic change.. Reviewed by: Homer Moran MD on 06/27/2024 8:34 AM PST Approved by: Homer Moran MD on 06/27/2024 8:34 AM PST Station ID: [id number]
--- NOTE | 2024-06-27 08:42 | CT Report ---
PROCEDURE: CT Angio Head/Neck INDICATIONS: abrupt confusion overnight TECHNIQUE: After the administration of intravenous contrast, 1 mm thick sections acquired from the aortic arch t hrough the [place]. 3-dimensional tckbbzk-qigrofixc-lsaygfpthf (MIP) and/or volume renderin g reformats were acquired of the central intracranial vasculature and neck separately. For radiation dose reduction, the following was used: automated exposure control, adjustment of mA and/or kV acco rding to patient size. CONTRAST: 80ml omni 300 COMPARISON: CT head from the same date. FINDINGS: Image quality: Diagnostic. HEAD CT: CSF Spaces: Basal cisterns are patent. No extra-axial fluid collections. Ventricles are normal in size and shape. Brain: Moderate to severe small vessel ischemic change is seen on the CT head from the same date. Skull and face: Calvarium and visualized facial bones appear intact, without suspicious lesions. Sinuses: Visualized sinuses and mastoids are clear. HEAD CT ANGIOGRAPHY: Anterior circulation: Intracranial internal carotid arteries are normal in size and flow. The flow within the paired anterior cerebral arteries is normal and symmetric. The flow within the middle cer ebral arteries is normal and symmetric. The anterior communicating artery is seen. No aneurysms are seen. Posterior circulation: Visualized portions of the vertebral arteries demonstrate normal caliber, and join to form a normal appearing basilar artery. Flow within the posterior cerebral arteries is norm al and symmetric. No aneurysms are seen. NECK CT ANGIOGRAPHY: Carotid system: The great vessels demonstrate normal variant anatomy, in which the left common carot id artery arises off the proximal brachiocephalic artery (bovine arch anatomy), and there is origin o f the left vertebral artery off the aortic arch. There is a moderate to severe focal very short segme nt origin stenosis of the left vertebral artery artery off the aortic arch. Reference sagittal image 60 of series 12 and coronal image 53 of series 10. The bilateral common carotid arteries are widely p atent. The common carotid arteries demonstrate normal caliber and courses. There is a mild, less than 50% proximal right internal carotid artery stenosis. The left internal carotid arteries widely paten t. It is tortuous. Posterior circulation: Normal variant origin of the left vertebral artery off the aortic arch. There is a moderate to severe focal very short segment origin stenosis of the left vertebral artery. The ve rtebral arteries are otherwise widely patent. The more superior extracranial portions of both vertebr al arteries also demonstrate normal courses and calibers. They join to form a normal appearing basil ar artery. Soft tissues: Visualized neck soft tissues demonstrate no suspicious abnormalities. Moderate centri lobular emphysema. Bones: No suspicious bony lesions. Visualized cervical spine appears normally aligned. IMPRESSION: No significant intracranial arterial abnormality is seen. Moderate to severe origin stenosis of the proximal left vertebral artery at its variant origin off th e aortic arch. No significant interval carotid artery stenotic disease. Moderate centrilobular emphysema. The estimate of stenosis included in the report of the imaging study was calculated using the NASCET method Reviewed by: Homer Moran MD on 06/27/2024 8:41 AM PST Approved by: Homer Moran MD on 06/27/2024 8:41 AM PST Station ID: [id number]
--- NOTE | 2024-06-27 08:44 | CT Report ---
PROCEDURE: CT Pelvis WO INDICATIONS: fall with right hip/pelvic pain TECHNIQUE: Noncontrast 3 mm axial sections acquired through the bony pelvis, with coronal and sagittal reformatt ing. For radiation dose reduction, the following was used: automated exposure control, adjustment of mA and/or kV according to patient size. COMPARISON: None. FINDINGS: Image quality: Excellent. [id number] degenerative changes bilateral hips right greater than left with joint space narrowi ng and small osteophytes. No CT evidence of displaced fracture, dislocation. Moderate degenerative changes lower lumbar spine most notably at L4-5 with diffuse circumferential or broad-based posterior disc bulge, marked facet ligamentous hypertrophic changes causing severe steno sis at this level. Moderate vascular calcifications distal aorta and iliac vessels. Moderate diverticulosis of the distal descending, sigmoid colon with mild nonspecific wall thickening some of which commonly artifact from partial nondistention or chronic changes without pericolonic ed ever or other secondary findings to suggest acute diverticulitis. Mild nonspecific wall thickening distal rectum/anus some of which commonly artifact from partial nond istention although proctitis, hemorrhoids or other anorectal lesion could be considered. Mild degenerative changes bilateral sacroiliac joints without CT evidence of sacral fracture. IMPRESSION: Degenerative changes of the lower lumbar spine most notably L4-5 with suspected severe central stenos is. Degenerative changes of the bilateral hips and sacroiliac joints without CT evidence of fracture or d islocation. Other chronic findings as discussed above. If symptoms persist or worsen, the patient is unable to bear weight, or there is high clinical suspic ion of pelvic/hip abnormality, MRI could be performed. Reviewed by: Mir Glaser MD on 06/27/2024 8:43 AM PST Approved by: Mir Glaser MD on 06/27/2024 8:43 AM PST Station ID: [id number]
[2024-06-27] MEDS: ASPIRIN CHEW 81 MG TABLET PO STA (09:46)
[2024-06-27 09:51] LABS: BILIRUBIN,URINE MODERATE (NEGATIVE); GLUCOSE, URINE (UA) NEGATIVE (NEGATIVE); KETONES,URINE (UA) 15 mg/dL (NEGATIVE); LEUKOCYTE ESTERASE, URINE NEGATIVE (NEGATIVE); NITRITE,URINE NEGATIVE (NEGATIVE); OCCULT BLOOD,URINE NEGATIVE (NEGATIVE); PH,URINE 6.5 PH (5.0-7.5); PROTEIN,URINE 100 mg/dL (NEGATIVE); UROBILINOGEN,URINE 1 (NORMAL) E.U./dL (NORMAL)
[2024-06-27 09:52] LABS: CLARITY,URINE CLEAR (CLEAR)
[2024-06-27 10:00] LABS: BACTERIA,URINE Moderate /HPF (None Seen); MUCUS,URINE Few Strands; RBC,URINE 0-5 /HPF (0-5); SQUAMOUS EPITHELIAL CELL,UR RARE Squamous (<= Few); WBC,URINE 0-3 /HPF (0-5)
[2024-06-27 10:01] LABS: AMPHETAMINE SCREEN,URINE NEGATIVE (NEGATIVE); BARBITURATE SCREEN,UR NEGATIVE (NEGATIVE); BENZODIAZEPINES SCREEN, URINE NEGATIVE (NEGATIVE); BUPRENORPHINE SCREEN, URINE NEGATIVE (NEGATIVE); COCAINE SCREEN URINE NEGATIVE (NEGATIVE); METHADONE SCREEN, URINE NEGATIVE (NEGATIVE); METHAMPHETAMINES SCREEN, URINE NEGATIVE (NEGATIVE); OPIATE SCREEN, URINE NEGATIVE (NEGATIVE); OXYCODONE SCREEN, URINE NEGATIVE (NEGATIVE); THC CANNABINOID SCREEN, URINE NEGATIVE (NEGATIVE); TRICYCLIC ANTIDEPRESSANT,URINE NEGATIVE (NEGATIVE)
--- NOTE | 2024-06-27 10:57 | XRAY Report ---
PROCEDURE: XR Chest 1V INDICATIONS: elevated BNP TECHNIQUE: One view of the chest was acquired. COMPARISON: None. FINDINGS: Rotated left anterior oblique. Mildly enlarged cardiopericardial silhouette and mildly prominent leidy, pulmonary vessels may be sp fact related to rotation. Mild calcifications of the aortic arch progressed. Several bilateral 2 mm-4 mm calcified granulomata unchanged. Moderate degenerative changes of the thoracic spine and shoulders progressed. No pneumothorax, no pleural effusion, no focal consolidation. IMPRESSION: Mildly enlarged cardiopericardial silhouette and leidy, pulmonary vessels. No radiographic evidence of acute abnormality. If symptoms persist or worsen, or there is high clinical suspicion of thoracic abnormality, CT chest could be performed. Reviewed by: Mir Glaser MD on 06/27/2024 10:55 AM [facility] Approved by: Mir Glaser MD on 06/27/2024 10:55 AM [facility] Station ID: [id number]
[2024-06-27] MEDS ORDERED: SODIUM CHLORIDE FLUSH 0.9% 10 ML SYRINGE IVP PRN (10:59)
--- NOTE | 2024-06-27 11:08 | HISTORY & PHYSICAL EXAMINATION ---
Chief Complaint <Angel Hinojosa - Last Filed: 06/27/24 13:55> Chief Complaint Chief Complaint: Altered mental status History of Present Illness <Angel Hinojosa - Last Filed: 06/27/24 13:55> Admitted From Admitted From:: ER History [facility] History obtained from: Records Exam Limitations: Patient altered mental status. History of Present Illness HPI Comment/Other: Patient is a 78 year old female being admitted from the ER after an unwitnessed fall. It was reported patient's son found her on the floor during the night. It is unknown how long she was there, but is assumed to be a few hours. Patient was reported by son and EMS to be very confused and not acting appropriate to baseline. Initial ER evaluation indicated GCS of 14. No signs of obvious trauma, head injury, or focal deficits were noted by EMS. Patient states all she remembers is getting up then passing out immediately. Patient currently denies any complaints to include headache, nausea, vomiting, chest pain, shortness of breath. Overall, she reports feeling fine. While speaking with patient's son, it is reported that she normally is unaware of the date/month. He also states when finding patient on the floor, no abnormalities were noted. He reports speech was normal with no signs of slurring. Face and extremities appeared symmetrical. No unusual movements, jerking, or seizure like activity was reported. Meds/Allgy <Angel Hinojosa - Last Filed: 06/27/24 13:55> Home Medications Ambulatory Orders Medication Instructions Recorded Confirmed lisinopril 20 mg tablet 20 mg PO BID 01/28/15 06/27/24 cetirizine 10 mg tablet 10 mg PO DAILY PRN Allergy Symptoms 01/04/18 06/27/24 aspirin 81 mg tablet,delayed 81 mg PO DAILY 01/05/18 06/27/24 release (Adult Aspirin Regimen) lactulose 10 gram/15 mL (15 mL) 15 ml PO QDAY #450 mL 05/27/24 06/27/24 oral solution amlodipine 2.5 mg tablet 2.5 mg PO DAILY 06/27/24 06/27/24 atorvastatin 40 mg tablet 40 mg PO QPM 06/27/24 06/27/24 metoprolol succinate 50 mg 75 mg PO DAILY 06/27/24 06/27/24 tablet,extended release 24 hr Allergies Allergies Allergy/AdvReac Type Severity Reaction Status Date / Time morphine Allergy Unknown Unknown Verified 06/27/24 10:55 Sulfa (Sulfonamide Allergy Unknown Unknown Verified 06/27/24 10:54 Antibiotics) PFS <Angel Hinojosa - Last Filed: 06/27/24 13:55> Medical History Medical History (Updated 06/27/24 @ 13:48 by Angel Hinojosa) Osteopenia Lumbar disc disorder Sigmoid diverticulosis TIA (transient ischemic attack) Hyperlipemia Hypertension Surgical History Surgical History (Updated 06/27/24 @ 11:00 by Angel Hinojosa) Hx of appendectomy Hx of cholecystectomy Family History Family History (Updated 06/27/24 @ 11:01 by Angel Hinojosa) Mother CVA (cerebral vascular accident) Uterine cancer Social History Social History Smoking Status: Current every day smoker How many cigarettes a day do you smoke? (20 cigarettes=1 Pk): 30 Relationship: Level: Assisted Home Mobility Equipment: Wheeled walker Do you feel safe in your home environment?: Yes Suffered physical, verbal, emotional, or financial abuse?: No History of Abuse: No POLST Patient has POLST: No Review of Systems <Angel Hinojosa - Last Filed: 06/27/24 13:55> Status of ROS: 10 or more systems reviewed and unremarkable except as noted in history and below and See HPI Constitutional Denies: Fatigue, Fever or Chills Eyes Denies: Change in vision Cardiovascular Reports: Irregular heart rate and Syncope; Denies: chest pain, palpitations, edema, swelling of feet/ankles or shortness of breath with exertion Respiratory Denies: Shortness of breath, Cough, Sputum production, Wheezing or Stridor Gastrointestinal Denies: Abdominal pain or Abdominal distention Neurological Denies: Headache, General weakness, Weakness in extremities, Slurred speech or Involuntary movements Endocrine Denies: Fatigue Allergic/Immunologic Denies: Wheezing <Angel Hionjosa - Last Filed: 06/27/24 13:55> Prior Level of Functionality: Patient showers and walks without assistance. Otherwise, its reported that she lives with her son who takes care of large majority of patient's tasks to include cooking meals, running errands, etc. Also reported that she often spends much of her time smoking or on the sofa watching TV, not eating or drinking much, unless she is encouraged to or brought food by the son. Exam <Angel Hinojosa - Last Filed: 06/27/24 13:55> Exam Patient is a 78 year old female found lying in ER bed in no obvious or apparent distress. Patient is pleasant and has no complaints, but does appear to have an altered mental status. She is does appear to reliably answer questions and follow commands regarding the physical exam. Constitutional normal general appearance, no apparent distress, average body habitus and level of alertness abnormal (confused) HENMT normocephalic and head/scalp atraumatic Eyes PERRL and EOMs intact bilaterally Neck/C-Spine visual inspection normal and trachea midline Respiratory breath sounds equal bilaterally, normal respiratory effort, clear to auscultation bilaterally, no wheezes, no rales, no retractions and no use of accessory muscles Cardiovascular heart rate abnormal, rhythm abnormal, no gallop, no rub and no murmur New onset AFIB noted. Gastrointestinal abdomen soft to palpation, nontender to palpation and nondistended Extremities normal to inspection, normal to palpation and full ROM Neurology no movement abnormality noted, no focal motor deficit noted, no sensory deficits noted and speech normal Psychiatry mental status abnormal and orientation abnormal oriented to self and place () and aware of current circumstances Skin skin color normal, no wounds and no lacerations Conclusion/Plan <Angel Hinojosa - Last Filed: 06/27/24 13:55> Problem List (1) Acute confusion: Plan: No obvious signs of acute stroke have been observed. CT was performed and negative for significant or acute vascular legion but does show carotid stenosis which is consistent with previous CT scans. Will further rule out stroke with MRI. ALOC is can also be due to possible extended down time resulting in dehydration and abnormal labs. Blood sugar is within normal limits so hyper/hypoglycemia is not suspected. Patient also has history of TIA with known arterial stenosis, so acute TIA is also considered. (2) Atrial fibrillation, new onset: Plan: Based upon previous ECGs, patient being in AFib is a new onset/acute problem. 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 Afib is currently rate controlled on metoprolol and will continue to be tele monitored. Perform echocardiogram due to acute afib. Patient also has medication history that suggests possible CHF, so echo can confirm this diagnosis as well. (3) Hypertension: Plan: Patient has history of hypertension which she is being treated for. Patient's blood pressure is currently within her normal limits, is asymptomatic, but will continue to be monitored. Qualifiers: Hypertension type: unspecified Qualified Code(s): I10 - Essential (primary) hypertension (4) Elevated CK: Plan: Elevated CK was observed initially, is trending down, but will continue to monitor. Lab Results 06/27/24 07:21 06/27/24 07:21 EKG Results EKG Interpreted Independently: Yes EKG Comparison: Changed from prior EKG EKG Findings: New onset afib <ANGELIKA Azul - Last Filed: 06/27/24 16:29> Problem List (1) Acute confusion: (2) Atrial fibrillation, new onset: (3) Hypertension: (4) Elevated CK:
[2024-06-27] MEDS: ONDANSETRON ODT 4 MG TABLET TL PRN (12:08)
[2024-06-27] MEDS: ACETAMINOPHEN 325 MG TABLET PO PRN (12:22)
--- NOTE | 2024-06-27 15:17 | PHARMACY PROGRESS NOTE ---
Best Possible Medication History Admit Date and Time: 06/27/24 231021 Home Medications Medication Instructions Recorded Confirmed Type lisinopril 20 mg tablet 20 mg PO BID 01/28/15 06/27/24 History cetirizine 10 mg tablet 10 mg PO DAILY PRN Allergy Symptoms 01/04/18 06/27/24 History aspirin 81 mg tablet,delayed 81 mg PO DAILY 01/05/18 06/27/24 History release (Adult Aspirin Regimen) lactulose 10 gram/15 mL (15 mL) 15 ml PO QDAY #450 mL 05/27/24 06/27/24 Rx oral solution amlodipine 2.5 mg tablet 2.5 mg PO DAILY 06/27/24 06/27/24 History atorvastatin 40 mg tablet 40 mg PO QPM 06/27/24 06/27/24 History metoprolol succinate 50 mg 75 mg PO DAILY 06/27/24 06/27/24 History tablet,extended release 24 hr Processed by: Pharmacy (Medication Reconciliation completed by diploma pharmacy technicianRan.) Medications reviewed in ED?: No Medication History completed: Yes Patient Interview: Pt unable to participate Secondary Source(s): Pharmacy records (Ran spoke with Nicanor at [facility]) and Insurance records [facility] Statement: As the person ultimately responsible for medication therapy, providers are able to order a medication from an existing home medication list in [facility] via the "Reconcile Routine" prior to Confirmation of that medication by network diagnostic support specialist. Such practice is discouraged except when the physician, in their clinical judgment, deems that a medical need exists for a medication without regard to previous use.
[2024-06-27] MEDS ORDERED: CETIRIZINE 10 MG TABLET PO PRN (16:24)
[2024-06-27] MEDS: SODIUM CHLORIDE FLUSH 0.9% 10 ML SYRINGE IVP SCH (17:25)
--- NOTE | 2024-06-27 17:25 | MRI Report ---
PROCEDURE: MRI Brain WO INDICATIONS: possible CVA, AMS TECHNIQUE: Noncontrast axial T1 spin echo, axial T2 fast spin echo, sagittal and axial FLAIR, coronal T2 fast sp in echo, axial gradient echo, axial diffusion and ADC through the brain. COMPARISON: Correlation is made with the accompanying CT examinations. FINDINGS: Image quality: Diagnostic, with note made of motion artifact. CSF Spaces: Basal cisterns are patent. No extra-axial fluid collections. Ventricles are normal in size and shape. Brain: No intracranial masses or hemorrhage. Landry/white matter interface is normal. Brainstem appe ars normal. Diffusion-weighted images demonstrate no acute ischemic insult. No chronic ischemic ins ults. Normal intravascular flow voids are present. Symmetric calcification of the basal ganglia can be seen, which is considered to be within normal limits for age. Skull and face: Calvarium has normal marrow signal. Orbits appear normal. Incidental note is made of bilateral lens replacements. Sinuses: Sinuses and mastoids are clear. IMPRESSION: No findings of acute or subacute infarction are seen. Reviewed by: Kyle Keller MD on 06/27/2024 4:24 PM [place] Approved by: Kyle Keller MD on 06/27/2024 4:24 PM [facility] Station ID: [id number]
[2024-06-27] MEDS: LACTULOSE 10 GM /15 ML UDC PO SCH (17:26)
[2024-06-27] MEDS: POTASSIUM CHLORIDE 20 MEQ TABLET PO ONE (19:51)
[2024-06-27] MEDS: lisinopriL 20 MG TABLET PO SCH (21:51)
[2024-06-27] MEDS: HEPARIN 5,000 UNIT/ML VIAL SUBQ SCH (21:51)
[2024-06-27] MEDS: ATORVASTATIN 40 MG TABLET PO SCH (21:51)
[2024-06-28] MEDS: METOPROLOL 5 MG/5 ML VIAL IVP PRN (03:45)
[2024-06-28 06:02] LABS: BASOPHILS % (AUTO) 0.4 %; EOSINOPHILS % (AUTO) 0.2 %; HCT - HEMATOCRIT 36.4 % (37.0-47.0); HGB - HEMOGLOBIN 11.6 g/dL (12.0-16.0); MEAN CORPUSCULAR HEMOGLOBIN 24.1 pg (27.0-31.0); MEAN CORPUSCULAR HGB CONC 31.9 g/dL (32.0-36.0); MEAN CORPUSCULAR VOLUME 75.5 fL (81.0-99.0); MEAN PLATELET VOLUME 9.2 fL (7.9-10.8); MONOCYTES % (AUTO) 9.6 %; NEUTROPHILS % (AUTO) 84.3 %; PLT - PLATELET COUNT 366 10^3/uL (130-450); RED BLOOD COUNT 4.82 10^6/uL (4.20-5.40); RED CELL DISTRIBUTION WIDTH 15.4 % (12.0-15.0); WHITE BLOOD COUNT 17.8 x10^3/uL (4.8-10.8)
[2024-06-28 06:05] LABS: ABNORMAL LYMPHS % (MANUAL) 0 %; BAND NEUTROPHILS % (MANUAL) 0 %
[2024-06-28 06:39] LABS: BUN - BLOOD UREA NITROGEN 40 mg/dL (6-20); CALCIUM 8.6 mg/dL (8.5-10.3); CARBON DIOXIDE - CO2 25 mmol/L (21-32); CHLORIDE 98 mmol/L (101-111); CREATININE 1.4 mg/dL (0.6-1.3); GFR - MDRD 36 (>89); GLUCOSE 113 mg/dL (74-104); IONIZED CALCIUM IF INDICATED NO; POTASSIUM 3.5 mmol/L (3.5-4.5); SODIUM 133 mmol/L (135-145)
[2024-06-28 06:46] LABS: DIFFERENTIAL COMMENT MANUAL DIFFERENTIAL; LYMPHOCYTES # (MANUAL) 0.9 10^3/uL (1.5-3.5); LYMPHOCYTES % (MANUAL) 5 %; MONOCYTES # (MANUAL) 1.2 10^3/uL (0.0-1.0); NEUTROPHILS # (MANUAL) 15.7 10^3/uL (1.5-6.6); PLATELET ESTIMATE, MANUAL NORMAL (130-450,000) (NORMAL); PLATELET MORPHOLOGY NORMAL APPEARANCE (NORMAL); RBC MORPHOLOGY (MULTIPLE) NORMAL APPEARANCE (NORMAL); WBC MORPHOLOGY (MULTIPLE) NORMAL APPEARANCE (NORMAL)
[2024-06-28] MEDS: POTASSIUM CHLORIDE 20 MEQ/15 ML UDC PO SCH (08:15)
[2024-06-28] MEDS: METOPROLOL SUCCINATE 25 MG TABLET PO SCH (08:15)
[2024-06-28] MEDS: ASPIRIN EC 81 MG TABLET PO SCH (08:16)
[2024-06-28] MEDS: amLODIPine 5 MG TABLET PO SCH (08:16)
--- NOTE | 2024-06-28 08:59 | PROVIDER PROGRESS NOTE ---
Subjective Prog Note Date Prog Note Date: 06/28/24 Prog Note Time: 08:58 Subjective Pt reports feeling: No change Current Medications Current Medications Current Medications: Current Medications Generic Name Dose Route Start Last Admin Trade Name Barbara PRN Reason Stop Dose Admin Acetaminophen 650 mg 06/27/24 10:59 06/27/24 12:22 Acetaminophen 325 Mg Tablet PO 650 mg Q4HR PRN Administration Pain 1 to 4, or Fever Amlodipine Besylate 2.5 mg 06/28/24 09:00 06/28/24 08:16 Amlodipine 5 Mg Tablet PO 2.5 mg DAILY ALEAH Administration Aspirin 81 mg 06/28/24 09:00 06/28/24 08:16 Aspirin Ec 81 Mg Tablet PO 81 mg DAILY ALEAH Administration Atorvastatin Calcium 40 mg 06/27/24 21:00 06/27/24 21:51 Atorvastatin 40 Mg Tablet PO 40 mg QPM ALEAH Administration Cetirizine HCl 10 mg 06/27/24 16:24 Cetirizine 10 Mg Tablet PO DAILY PRN Allergy Symptoms Heparin Sodium (Porcine) 5,000 unit 06/27/24 21:00 06/28/24 08:16 Heparin 5,000 Unit/Ml Vial SUBQ 5,000 unit BID ALEAH Administration Lactulose 10 gm 06/27/24 17:00 06/27/24 17:26 Lactulose 10 Gm /15 Ml Udc PO 10 gm QD ALEAH Administration Lisinopril 20 mg 06/27/24 21:00 06/28/24 08:15 Lisinopril 20 Mg Tablet PO 20 mg BID ALEAH Administration Metoprolol Succinate 75 mg 06/28/24 09:00 06/28/24 08:15 Metoprolol Succinate 25 Mg Tablet PO 75 mg DAILY ALEAH Administration Metoprolol Tartrate 5 mg 06/27/24 16:26 06/28/24 03:45 Metoprolol 5 Mg/5 Ml Vial IVP 5 mg Q6H PRN Administration Tachycardia Ondansetron HCl 4 mg 06/27/24 10:59 06/27/24 12:08 Ondansetron Odt 4 Mg Tablet TL 4 mg Q6HR PRN Administration Nausea / Vomiting Potassium Chloride 20 meq 06/28/24 08:00 06/28/24 08:15 Potassium Chloride 20 Meq/15 Ml Udc PO 20 meq DAILYWM ALEAH Administration Sodium Chloride 10 ml 06/27/24 10:59 Sodium Chloride Flush 0.9% 10 Ml Syringe IVP PRN PRN NEEDED PER PROVIDER ORDERS Sodium Chloride 10 ml 06/27/24 17:00 06/28/24 08:19 Sodium Chloride Flush 0.9% 10 Ml Syringe IVP 10 ml 0100,0900,1700 ALEAH Administration Objective Vital Signs/Intake & Output Vital Signs: Vital Signs x48h Temp Pulse Resp BP Pulse Ox 06/28/24 08:21 36.2 C L 106 H 18 124/63 93 06/28/24 04:51 37.0 C 120 H 18 139/71 H 97 06/28/24 02:00 105 H 18 127/63 93 06/28/24 01:00 36.6 C 94 H 20 125/64 92 Intake & Output: Intake & Output 06/26/24 06/27/24 06/28/24 06/29/24 05:59 05:59 05:59 05:59 Intake Total 520 / 520 Balance 520 / 520 Weight (kg) 59 kg Lab Results 06/28/24 05:50 06/28/24 05:50 Other Labs: Lab Results x24hrs 06/28/24 06/27/24 06/27/24 Range/Units 05:50 16:36 09:45 WBC 17.8 H (4.8-10.8) x10^3/uL RBC 4.82 (4.20-5.40) 10^6/uL Hgb 11.6 L (12.0-16.0) g/dL Hct 36.4 L (37.0-47.0) % MCV 75.5 L (81.0-99.0) fL MCH 24.1 L (27.0-31.0) pg MCHC 31.9 L (32.0-36.0) g/dL RDW 15.4 H (12.0-15.0) % Plt Count 366 (130-450) 10^3/uL MPV 9.2 (7.9-10.8) fL Neut # (Auto) Not Reportable Lymph # (Auto) Not Reportable Ballard # (Auto) Not Reportable Eos # (Auto) Not Reportable Baso # (Auto) Not Reportable Absolute Nucleated RBC Not Reportable Total Counted 100 Band Neuts % (Manual) 0 (0 - 10) % Abnorm Lymph % (Manual) 0 % Nucleated RBC % Not Reportable Neutrophils # (Manual) 15.7 H (1.5-6.6) 10^3/uL Lymphocytes # (Manual) 0.9 L (1.5-3.5) 10^3/uL Monocytes # (Manual) 1.2 H (0.0-1.0) 10^3/uL Eosinophils # (Manual) 0.0 (0-0.7) 10^3/uL Basophils # (Manual) 0.0 (0-0.1) 10^3/uL Differential Comment MANUAL DIFFERENTIAL WBC Morphology NORMAL APPEARANCE (NORMAL) Platelet Estimate NORMAL (130-450,000) (NORMAL) Platelet Morphology NORMAL APPEARANCE (NORMAL) RBC Morph Micro Appear NORMAL APPEARANCE (NORMAL) Sodium 133 L (135-145) mmol/L Potassium 3.5 (3.5-4.5) mmol/L Chloride 98 L (101-111) mmol/L Carbon Dioxide 25 (21-32) mmol/L Anion Gap 10.0 (6-13) BUN 40 H (6-20) mg/dL Creatinine 1.4 H (0.6-1.3) mg/dL Estimated GFR (MDRD) 36 L (>89) Glucose 113 H (74-104) mg/dL Calcium 8.6 (8.5-10.3) mg/dL Ionized Calcium NO Total Creatine Kinase 241 H (30-223) IU/L Urine Color Urine Clarity (CLEAR) Urine pH (5.0-7.5) PH Ur Specific [place] (1.002-1.030) Urine Protein (NEGATIVE) mg/dL Urine Glucose (UA) (NEGATIVE) mg/dL Urine Ketones (NEGATIVE) mg/dL Urine Occult Blood (NEGATIVE) Urine Nitrite (NEGATIVE) Urine Bilirubin (NEGATIVE) Urine Urobilinogen (NORMAL) E.U./dL Ur Leukocyte Esterase (NEGATIVE) Urine RBC (0-5) /HPF Urine WBC (0-5) /HPF Ur Squamous Epith Cells (<= Few) Urine Bacteria (None Seen) /HPF Urine Casts 0-2 Waxy Casts /LPF Urine Mucus Few Strands Ur Microscopic Review INDICATED Urine Culture Comments NOT INDICATED Urine Opiates Screen NEGATIVE (NEGATIVE) Ur Buprenorphine Scrn NEGATIVE (NEGATIVE) Ur Oxycodone Screen NEGATIVE (NEGATIVE) Urine Methadone Screen NEGATIVE (NEGATIVE) Ur Barbiturates Screen NEGATIVE (NEGATIVE) Ur Tricyclics Screen NEGATIVE (NEGATIVE) Ur Phencyclidine Scrn NEGATIVE (NEGATIVE) Ur Amphetamine Screen NEGATIVE (NEGATIVE) U Methamphetamines Scrn NEGATIVE (NEGATIVE) U Benzodiazepines Scrn NEGATIVE (NEGATIVE) Urine Cocaine Screen NEGATIVE (NEGATIVE) U Cannabinoids Screen NEGATIVE (NEGATIVE) Ur Drug Screen Comment CUTOFF CONC BELOW: 06/27/24 06/27/24 Range/Units 09:45 09:45 WBC (4.8-10.8) x10^3/uL RBC (4.20-5.40) 10^6/uL Hgb (12.0-16.0) g/dL Hct (37.0-47.0) % MCV (81.0-99.0) fL MCH (27.0-31.0) pg MCHC (32.0-36.0) g/dL RDW (12.0-15.0) % Plt Count (130-450) 10^3/uL MPV (7.9-10.8) fL Neut # (Auto) Lymph # (Auto) Ballard # (Auto) Eos # (Auto) Baso # (Auto) Absolute Nucleated RBC Total Counted Band Neuts % (Manual) (0 - 10) % Abnorm Lymph % (Manual) % Nucleated RBC % Neutrophils # (Manual) (1.5-6.6) 10^3/uL Lymphocytes # (Manual) (1.5-3.5) 10^3/uL Monocytes # (Manual) (0.0-1.0) 10^3/uL Eosinophils # (Manual) (0-0.7) 10^3/uL Basophils # (Manual) (0-0.1) 10^3/uL Differential Comment WBC Morphology (NORMAL) Platelet Estimate (NORMAL) Platelet Morphology (NORMAL) RBC Morph Micro Appear (NORMAL) Sodium (135-145) mmol/L Potassium (3.5-4.5) mmol/L Chloride (101-111) mmol/L Carbon Dioxide (21-32) mmol/L Anion Gap (6-13) BUN (6-20) mg/dL Creatinine (0.6-1.3) mg/dL Estimated GFR (MDRD) (>89) Glucose (74-104) mg/dL Calcium (8.5-10.3) mg/dL Ionized Calcium Total Creatine Kinase (30-223) IU/L Urine Color DARK YELLOW Urine Clarity CLEAR (CLEAR) Urine pH 6.5 (5.0-7.5) PH Ur Specific [place] 1.020 (1.002-1.030) Urine Protein 100 H (NEGATIVE) mg/dL Urine Glucose (UA) NEGATIVE (NEGATIVE) mg/dL Urine Ketones 15 H (NEGATIVE) mg/dL Urine Occult Blood NEGATIVE (NEGATIVE) Urine Nitrite NEGATIVE (NEGATIVE) Urine Bilirubin MODERATE H (NEGATIVE) Urine Urobilinogen 1 (NORMAL) (NORMAL) E.U./dL Ur Leukocyte Esterase NEGATIVE (NEGATIVE) Urine RBC 0-5 (0-5) /HPF Urine WBC 0-3 (0-5) /HPF Ur Squamous Epith Cells RARE Squamous (<= Few) Urine Bacteria Moderate H (None Seen) /HPF Urine Casts 3-5 Cellular Casts 0-2 Hyaline Casts /LPF Urine Mucus Ur Microscopic Review Urine Culture Comments Urine Opiates Screen (NEGATIVE) Ur Buprenorphine Scrn (NEGATIVE) Ur Oxycodone Screen (NEGATIVE) Urine Methadone Screen (NEGATIVE) Ur Barbiturates Screen (NEGATIVE) Ur Tricyclics Screen (NEGATIVE) Ur Phencyclidine Scrn (NEGATIVE) Ur Amphetamine Screen (NEGATIVE) U Methamphetamines Scrn (NEGATIVE) U Benzodiazepines Scrn (NEGATIVE) Urine Cocaine Screen (NEGATIVE) U Cannabinoids Screen (NEGATIVE) Ur Drug Screen Comment Assessment/Plan Problem List (1) Acute confusion: (2) Atrial fibrillation, new onset: (3) Hypertension: Qualifiers: Hypertension type: unspecified Qualified Code(s): I10 - Essential (primary) hypertension (4) Elevated CK:
--- NOTE | 2024-06-28 12:29 | PROVIDER PROGRESS NOTE ---
Documented by User: Angel Hinojosa 06/28/24 13:43 Subjective Prog Note Date Prog Note Date: 06/28/24 Prog Note Time: 12:20 Subjective Pt reports feeling: No change Subjective: Patient is oriented to person with no obvious changes to mental status. She is pleasant, answering questions, eating on her own, and does not appear to be in any distress. She is denying any pain, nausea, vomiting, or other complaints. Current Medications Current Medications Current Medications: Current Medications Generic Name Dose Route Start Last Admin Trade Name Freq PRN Reason Stop Dose Admin Acetaminophen 650 mg 06/27/24 10:59 06/27/24 12:22 Acetaminophen 325 Mg Tablet PO 650 mg Q4HR PRN Administration Pain 1 to 4, or Fever Amlodipine Besylate 2.5 mg 06/28/24 09:00 06/28/24 08:16 Amlodipine 5 Mg Tablet PO 2.5 mg DAILY ALEAH Administration Aspirin 81 mg 06/28/24 09:00 06/28/24 08:16 Aspirin Ec 81 Mg Tablet PO 81 mg DAILY ALEAH Administration Atorvastatin Calcium 40 mg 06/27/24 21:00 06/27/24 21:51 Atorvastatin 40 Mg Tablet PO 40 mg QPM ALEAH Administration Cetirizine HCl 10 mg 06/27/24 16:24 Cetirizine 10 Mg Tablet PO DAILY PRN Allergy Symptoms Heparin Sodium (Porcine) 5,000 unit 06/27/24 21:00 06/28/24 08:16 Heparin 5,000 Unit/Ml Vial SUBQ 5,000 unit BID ALEAH Administration Lactulose 10 gm 06/27/24 17:00 06/27/24 17:26 Lactulose 10 Gm /15 Ml Udc PO 10 gm QD ALEAH Administration Lisinopril 20 mg 06/27/24 21:00 06/28/24 08:15 Lisinopril 20 Mg Tablet PO 20 mg BID ALEAH Administration Metoprolol Succinate 75 mg 06/28/24 09:00 06/28/24 08:15 Metoprolol Succinate 25 Mg Tablet PO 75 mg DAILY ALEAH Administration Metoprolol Tartrate 5 mg 06/27/24 16:26 06/28/24 03:45 Metoprolol 5 Mg/5 Ml Vial IVP 5 mg Q6H PRN Administration Tachycardia Ondansetron HCl 4 mg 06/27/24 10:59 06/27/24 12:08 Ondansetron Odt 4 Mg Tablet TL 4 mg Q6HR PRN Administration Nausea / Vomiting Potassium Chloride 20 meq 06/28/24 08:00 06/28/24 08:15 Potassium Chloride 20 Meq/15 Ml Udc PO 20 meq DAILYWM ALEAH Administration Sodium Chloride 10 ml 06/27/24 10:59 Sodium Chloride Flush 0.9% 10 Ml Syringe IVP PRN PRN NEEDED PER PROVIDER ORDERS Sodium Chloride 10 ml 06/27/24 17:00 06/28/24 08:19 Sodium Chloride Flush 0.9% 10 Ml Syringe IVP 10 ml 0100,0900,1700 ALEAH Administration Objective Vital Signs/Intake & Output Reviewed Vital Signs: Yes Vital Signs: Vital Signs x48h Temp Pulse Resp BP Pulse Ox 06/28/24 08:21 36.2 C L 106 H 18 124/63 93 06/28/24 04:51 37.0 C 120 H 18 139/71 H 97 Intake & Output: Intake & Output 06/26/24 06/27/24 06/28/24 06/29/24 05:59 05:59 05:59 05:59 Intake Total 520 / 520 240 / 240 Balance 520 / 520 240 / 240 Weight (kg) 59 kg Objective General Appearance: positive No acute distress and Alert Eyes Bilateral: positive Normal inspection, PERRL, EOMI and Conjunctivae nml ENT: positive No signs of dehydration Neck: positive Nml inspection, No JVD and Trachea midline Respiratory: positive No respiratory distress; negative Wheezes, Rales or Rhonchi Cardiovascular: positive Irregularly irregular; negative Regular rate & rhythm Abdomen: positive Non-tender, Nml bowel sounds and No distention; negative Tenderness or Abnml bowel sounds Back: positive Nml inspection Skin: positive Color nml and Warm; negative Cyanosis or Diaphoresis Extremities: positive Non-tender, Full ROM, Nml appearance and No pedal edema; negative Pedal edema Neurologic/Psychiatric: positive CN's nml (2-12), Motor nml, Sensation nml and Mood/affect nml; negative Disoriented to person or Slurred/abnml speech Lab Results 06/28/24 05:50 06/28/24 05:50 Other Labs: Lab Results x24hrs 06/28/24 06/27/24 Range/Units 05:50 16:36 WBC 17.8 H (4.8-10.8) x10^3/uL RBC 4.82 (4.20-5.40) 10^6/uL Hgb 11.6 L (12.0-16.0) g/dL Hct 36.4 L (37.0-47.0) % MCV 75.5 L (81.0-99.0) fL MCH 24.1 L (27.0-31.0) pg MCHC 31.9 L (32.0-36.0) g/dL RDW 15.4 H (12.0-15.0) % Plt Count 366 (130-450) 10^3/uL MPV 9.2 (7.9-10.8) fL Neut # (Auto) Not Reportable Lymph # (Auto) Not Reportable [place] # (Auto) Not Reportable Eos # (Auto) Not Reportable Baso # (Auto) Not Reportable Absolute Nucleated RBC Not Reportable Total Counted 100 Band Neuts % (Manual) 0 (0 - 10) % Abnorm Lymph % (Manual) 0 % Nucleated RBC % Not Reportable Neutrophils # (Manual) 15.7 H (1.5-6.6) 10^3/uL Lymphocytes # (Manual) 0.9 L (1.5-3.5) 10^3/uL Monocytes # (Manual) 1.2 H (0.0-1.0) 10^3/uL Eosinophils # (Manual) 0.0 (0-0.7) 10^3/uL Basophils # (Manual) 0.0 (0-0.1) 10^3/uL Differential Comment MANUAL DIFFERENTIAL WBC Morphology NORMAL APPEARANCE (NORMAL) Platelet Estimate NORMAL (130-450,000) (NORMAL) Platelet Morphology NORMAL APPEARANCE (NORMAL) RBC Morph Micro Appear NORMAL APPEARANCE (NORMAL) Sodium 133 L (135-145) mmol/L Potassium 3.5 (3.5-4.5) mmol/L Chloride 98 L (101-111) mmol/L Carbon Dioxide 25 (21-32) mmol/L Anion Gap 10.0 (6-13) BUN 40 H (6-20) mg/dL Creatinine 1.4 H (0.6-1.3) mg/dL Estimated GFR (MDRD) 36 L (>89) Glucose 113 H (74-104) mg/dL Calcium 8.6 (8.5-10.3) mg/dL Ionized Calcium NO Total Creatine Kinase 241 H (30-223) IU/L Diagnostic Imaging Diagnostic Imaging Results: positive Other Diagnostic Imaging Comments: Waiting on chest CT. All other imaging insignificant. ABX Reporting Has patient been on IV antibiotics over the past 48 hours?: No Assessment/Plan Problem List (1) Acute confusion: Impression: After discussions with both patient's sons, it appears she has been deteriorating for a period of weeks and her current mental state may be her new baseline. She lives with one of her sons who helps provide care, however he has a learning disabilities, and while he is able to live and care for himself independently, it appears that he cannot provide the living situation necessary for the patient. However, it is still difficult to say if this is truly her new baseline. PT will assess patient for her level of function. Social work will be contacted for possible assisted living placement. Vitals and blood work will continue to be monitored treated if necessary. (2) Leukocytosis: Impression: It is noted that patient's leukocytosis is rising as well. Chest CT will be ordered to rule out possible pneumonia as a cause of consfusion. Straight cath UA has been ordered to check for UTI. Initial UA was negative, but that was clean catch specimen. Qualifiers: Leukocytosis type: unspecified Qualified Code(s): D72.829 - Elevated white blood cell count, unspecified (3) Atrial fibrillation, new onset: Impression: I have started oral diltiazem, in addition to metoprolol, for treatment of afib. Will perform repeat EKG due to 9 beat run of vtach. (4) Hypertension: Impression: BP has been trending downwards. Will continue to monitor, no immediate interventions needed. Qualifiers: Hypertension type: unspecified Qualified Code(s): I10 - Essential (primary) hypertension (5) Elevated CK: Impression: CK is trending down, will continue to monitor and reevaluate, no immediate interventions needed. Documented by User: ANGELIKA Azul 06/28/24 14:54 Objective Lab Results 06/28/24 05:50 06/28/24 05:50 Assessment/Plan Problem List (1) Acute confusion: (2) Leukocytosis: Qualifiers: Leukocytosis type: unspecified Qualified Code(s): D72.829 - Elevated white blood cell count, unspecified (3) Atrial fibrillation, new onset: (4) Hypertension: Qualifiers: Hypertension type: unspecified Qualified Code(s): I10 - Essential (primary) hypertension (5) Elevated CK:
[2024-06-28 13:53] LABS: BILIRUBIN,URINE MODERATE (NEGATIVE); GLUCOSE, URINE (UA) NEGATIVE (NEGATIVE); KETONES,URINE (UA) TRACE mg/dL (NEGATIVE); LEUKOCYTE ESTERASE, URINE NEGATIVE (NEGATIVE); NITRITE,URINE NEGATIVE (NEGATIVE); OCCULT BLOOD,URINE NEGATIVE (NEGATIVE); PH,URINE 5.5 PH (5.0-7.5); PROTEIN,URINE 30 mg/dL (NEGATIVE); UROBILINOGEN,URINE 1 (NORMAL) E.U./dL (NORMAL)
[2024-06-28 13:54] LABS: CLARITY,URINE CLEAR (CLEAR)
[2024-06-28 14:41] LABS: BACTERIA,URINE Moderate /HPF (None Seen); RBC,URINE 0-5 /HPF (0-5); SQUAMOUS EPITHELIAL CELL,UR NONE SEEN (<= Few); WBC,URINE 0-3 /HPF (0-5)
--- NOTE | 2024-06-28 16:44 | CT Report ---
PROCEDURE: CT Chest WO INDICATIONS: leukocytosis TECHNIQUE: A CT scan of the chest was performed. Intravenous contrast media was not administered. Images were re corded and evaluated at appropriate window settings. Reformats: axial MIP of the chest, coronal and s agittal. For radiation dose reduction, the following was used: automated exposure control, adjustment of mA and/or kV according to patient size. COMPARISON: CT of chest dated 01/05/2022. FINDINGS: Image quality: Diagnostic. Chest wall and lower neck: No thyroid nodule which requires sonographic follow up. No axillary or sup raclavicular adenopathy by size. Lungs and pleura: Scattered atelectasis in posterior and lateral periphery of bilateral lower lung zo ne is seen. No consolidation. No pleural effusions. No pneumothorax. No suspicious pulmonary nodules which require follow up. Mediastinum: Heart size is normal. No pericardial effusion. No large vessel abnormality. No mediastin al adenopathy by size criteria. Moderate atherosclerotic calcifications are noted in coronary arteri es and thoracic aorta. Bones: No aggressive osseous abnormality. Upper Abdomen: Unremarkable. IMPRESSION: 1. Scattered atelectasis at bilateral lower lung [place]. No focal infiltrate, pleural effusion or pne umothorax. Airway is patent. 2. Mild to moderate atherosclerotic calcifications in coronary vessels and thoracic aorta. No thoraci c aortic aneurysm. No mediastinal or hilar lymphadenopathy. Reviewed by: Cody Foote MD on 06/28/2024 4:42 PM PST Approved by: Cody Foote MD on 06/28/2024 4:42 PM PST Station ID: [id number]
[2024-06-28] MEDS: diltiaZEM 30 MG TABLET PO SCH (18:54)
[2024-06-28] MEDS: MULTIVITAMIN W/MINERALS TABLET PO SCH (19:00)
[2024-06-29 05:41] LABS: BASOPHILS # (AUTO) 0.1 10^3/uL (0.0-0.1); BASOPHILS % (AUTO) 0.4 %; EOSINOPHILS # (AUTO) 0.1 10^3/uL (0.0-0.7); EOSINOPHILS % (AUTO) 0.9 %; HCT - HEMATOCRIT 32.8 % (37.0-47.0); HGB - HEMOGLOBIN 10.6 g/dL (12.0-16.0); LYMPHOCYTES # (AUTO) 1.5 10^3/uL (1.5-3.5); LYMPHOCYTES % (AUTO) 12.2 %; MEAN CORPUSCULAR HEMOGLOBIN 23.8 pg (27.0-31.0); MEAN CORPUSCULAR HGB CONC 32.3 g/dL (32.0-36.0); MEAN CORPUSCULAR VOLUME 73.5 fL (81.0-99.0); MEAN PLATELET VOLUME 9.8 fL (7.9-10.8); MONOCYTES # (AUTO) 1.1 10^3/uL (0.0-1.0); MONOCYTES % (AUTO) 8.8 %; NEUTROPHILS # (AUTO) 9.6 10^3/uL (1.5-6.6); NEUTROPHILS % (AUTO) 77.1 %; PLT - PLATELET COUNT 176 10^3/uL (130-450); RED BLOOD COUNT 4.46 10^6/uL (4.20-5.40); RED CELL DISTRIBUTION WIDTH 15.4 % (12.0-15.0); WHITE BLOOD COUNT 12.4 x10^3/uL (4.8-10.8)
[2024-06-29 05:55] LABS: BUN - BLOOD UREA NITROGEN 55 mg/dL (6-20); CALCIUM 8.7 mg/dL (8.5-10.3); CARBON DIOXIDE - CO2 23 mmol/L (21-32); CHLORIDE 100 mmol/L (101-111); GFR - MDRD 24 (>89); GLUCOSE 104 mg/dL (74-104); IONIZED CALCIUM IF INDICATED NO; POTASSIUM 3.7 mmol/L (3.5-4.5); SODIUM 133 mmol/L (135-145)
[2024-06-29 06:03] LABS: PLATELET ESTIMATE, MANUAL NORMAL (130-450,000) (NORMAL); PLATELET MORPHOLOGY PLATELET CLUMPING (NORMAL)
[2024-06-29] MEDS: SODIUM CHLORIDE 0.9% 1,000 ML IV SCH (11:23)
--- NOTE | 2024-06-29 13:24 | PROVIDER PROGRESS NOTE ---
Documented by User: Angel Hinojosa 06/29/24 14:34 Subjective Prog Note Date Prog Note Date: 06/29/24 Prog Note Time: 14:28 Subjective Pt reports feeling: No change Subjective: Patient was approached while eating lunch. She is in no apparent distress and is able to answer questions and carry on a conversation, consistant with the last few days of her stay. She denies any complaints, stating she just wants to go home. She is only alert to her name, unable to state where she is. Otherwise, not changes noted. Current Medications Current Medications Current Medications: Current Medications Generic Name Dose Route Start Last Admin Trade Name Freq PRN Reason Stop Dose Admin Acetaminophen 650 mg 06/27/24 10:59 06/27/24 12:22 Acetaminophen 325 Mg Tablet PO 650 mg Q4HR PRN Administration Pain 1 to 4, or Fever Amlodipine Besylate 2.5 mg 06/28/24 09:00 06/29/24 09:09 Amlodipine 5 Mg Tablet PO 2.5 mg DAILY ALEAH Administration Aspirin 81 mg 06/28/24 09:00 06/29/24 09:08 Aspirin Ec 81 Mg Tablet PO 81 mg DAILY ALEAH Administration Atorvastatin Calcium 40 mg 06/27/24 21:00 06/28/24 21:56 Atorvastatin 40 Mg Tablet PO 40 mg QPM ALEAH Administration Cetirizine HCl 10 mg 06/27/24 16:24 Cetirizine 10 Mg Tablet PO DAILY PRN Allergy Symptoms Diltiazem HCl 30 mg 06/28/24 18:00 06/29/24 05:23 Diltiazem 30 Mg Tablet PO 30 mg Q6HR ALEAH Administration Heparin Sodium (Porcine) 5,000 unit 06/27/24 21:00 06/29/24 09:09 Heparin 5,000 Unit/Ml Vial SUBQ 5,000 unit BID ALEAH Administration Lactulose 10 gm 06/27/24 17:00 06/28/24 18:55 Lactulose 10 Gm /15 Ml Udc PO 10 gm QD ALEAH Administration Lisinopril 20 mg 06/27/24 21:00 06/29/24 09:08 Lisinopril 20 Mg Tablet PO 20 mg BID ALEAH Administration Metoprolol Succinate 75 mg 06/28/24 09:00 06/29/24 09:09 Metoprolol Succinate 25 Mg Tablet PO Not Given DAILY ALEAH Metoprolol Tartrate 5 mg 06/27/24 16:26 06/28/24 03:45 Metoprolol 5 Mg/5 Ml Vial IVP 5 mg Q6H PRN Administration Tachycardia Multivitamins/Minerals 1 tab 06/28/24 16:00 06/29/24 09:08 Multivitamin W/Minerals Tablet PO 1 tab DAILYWM ALEAH Administration Ondansetron HCl 4 mg 06/27/24 10:59 06/27/24 12:08 Ondansetron Odt 4 Mg Tablet TL 4 mg Q6HR PRN Administration Nausea / Vomiting Potassium Chloride 20 meq 06/28/24 08:00 06/29/24 09:08 Potassium Chloride 20 Meq/15 Ml Udc PO 20 meq DAILYWM ALEAH Administration Sodium Chloride 10 ml 06/27/24 10:59 Sodium Chloride Flush 0.9% 10 Ml Syringe IVP PRN PRN NEEDED PER PROVIDER ORDERS Sodium Chloride 10 ml 06/27/24 17:00 06/29/24 09:09 Sodium Chloride Flush 0.9% 10 Ml Syringe IVP 10 ml 0100,0900,1700 ALEAH Administration Objective Vital Signs/Intake & Output Reviewed Vital Signs: Yes Vital Signs: Vital Signs x48h Temp Pulse Pulse Pulse Resp BP BP 06/29/24 08:07 36.6 C 53 L 17 116/57 L 06/29/24 05:23 62 155/52 H 06/29/24 05:00 36.3 C L 62 18 155/52 H Pulse Ox 06/29/24 08:07 92 06/29/24 05:23 06/29/24 05:00 95 Intake & Output: Intake & Output 06/27/24 06/28/24 06/29/24 06/30/24 05:59 05:59 05:59 05:59 Intake Total 520 / 520 890 / 890 50 / 50 Output Total 400 / 400 Balance 520 / 520 490 / 490 50 / 50 Weight (kg) 59 kg Objective General Appearance: positive No acute distress and Alert; negative Mild distress, Anxious or Lethargic Eyes Bilateral: positive Normal inspection, PERRL and No lid inflammation ENT: positive ENT inspection nml and Pharynx nml Neck: positive Nml inspection and Trachea midline Respiratory: positive Chest non-tender, No respiratory distress and Breath sounds nml; negative Wheezes, Rales or Rhonchi Cardiovascular: positive No murmur, No gallop, Irregularly irregular and Bradycardia; negative Regular rate & rhythm Abdomen: positive Non-tender, Nml bowel sounds and No distention; negative Tenderness Back: positive Nml inspection Skin: positive Color nml, Warm and Dry Extremities: positive Non-tender, Full ROM, Nml appearance and No pedal edema Neurologic/Psychiatric: positive CN's nml (2-12), Motor nml, Sensation nml, Mood/affect nml, Disoriented to place and Disoriented to time; negative Oriented x3, Weakness, Sensory loss, Facial droop or Slurred/abnml speech Lab Results 06/29/24 05:33 06/29/24 05:33 Other Labs: Lab Results x24hrs 06/29/24 06/28/24 06/28/24 Range/Units 05:33 20:55 14:42 WBC 12.4 H (4.8-10.8) x10^3/uL RBC 4.46 (4.20-5.40) 10^6/uL Hgb 10.6 L (12.0-16.0) g/dL Hct 32.8 L (37.0-47.0) % MCV 73.5 L (81.0-99.0) fL MCH 23.8 L (27.0-31.0) pg MCHC 32.3 (32.0-36.0) g/dL RDW 15.4 H (12.0-15.0) % Plt Count 176 (130-450) 10^3/uL MPV 9.8 (7.9-10.8) fL Neut # (Auto) 9.6 H (1.5-6.6) 10^3/uL Lymph # (Auto) 1.5 (1.5-3.5) 10^3/uL [place] # (Auto) 1.1 H (0.0-1.0) 10^3/uL Eos # (Auto) 0.1 (0.0-0.7) 10^3/uL Baso # (Auto) 0.1 (0.0-0.1) 10^3/uL Absolute Nucleated RBC 0.00 x10^3/uL Nucleated RBC % 0.0 /100WBC Platelet Estimate NORMAL (130-450,000) (NORMAL) Platelet Morphology PLATELET CLUMPING (NORMAL) Sodium 133 L (135-145) mmol/L Potassium 3.7 (3.5-4.5) mmol/L Chloride 100 L (101-111) mmol/L Carbon Dioxide 23 (21-32) mmol/L Anion Gap 10.0 (6-13) BUN 55 H (6-20) mg/dL Creatinine 2.0 H (0.6-1.3) mg/dL Estimated GFR (MDRD) 24 L (>89) Glucose 104 (74-104) mg/dL Calcium 8.7 (8.5-10.3) mg/dL Ionized Calcium NO Troponin I High Sens 39.3 H* 43.7 H* (2.3-14.8) ng/L Urine Color Urine Clarity (CLEAR) Urine pH (5.0-7.5) PH Ur Specific [place] (1.002-1.030) Urine Protein (NEGATIVE) mg/dL Urine Glucose (UA) (NEGATIVE) mg/dL Urine Ketones (NEGATIVE) mg/dL Urine Occult Blood (NEGATIVE) Urine Nitrite (NEGATIVE) Urine Bilirubin (NEGATIVE) Urine Urobilinogen (NORMAL) E.U./dL Ur Leukocyte Esterase (NEGATIVE) Urine RBC (0-5) /HPF Urine WBC (0-5) /HPF Ur Squamous Epith Cells (<= Few) Urine Bacteria (None Seen) /HPF Urine Culture Comments 06/28/24 Range/Units 13:40 WBC (4.8-10.8) x10^3/uL RBC (4.20-5.40) 10^6/uL Hgb (12.0-16.0) g/dL Hct (37.0-47.0) % MCV (81.0-99.0) fL MCH (27.0-31.0) pg MCHC (32.0-36.0) g/dL RDW (12.0-15.0) % Plt Count (130-450) 10^3/uL MPV (7.9-10.8) fL Neut # (Auto) (1.5-6.6) 10^3/uL Lymph # (Auto) (1.5-3.5) 10^3/uL [place] # (Auto) (0.0-1.0) 10^3/uL Eos # (Auto) (0.0-0.7) 10^3/uL Baso # (Auto) (0.0-0.1) 10^3/uL Absolute Nucleated RBC x10^3/uL Nucleated RBC % /100WBC Platelet Estimate (NORMAL) Platelet Morphology (NORMAL) Sodium (135-145) mmol/L Potassium (3.5-4.5) mmol/L Chloride (101-111) mmol/L Carbon Dioxide (21-32) mmol/L Anion Gap (6-13) BUN (6-20) mg/dL Creatinine (0.6-1.3) mg/dL Estimated GFR (MDRD) (>89) Glucose (74-104) mg/dL Calcium (8.5-10.3) mg/dL Ionized Calcium Troponin I High Sens (2.3-14.8) ng/L Urine Color DARK YELLOW Urine Clarity CLEAR (CLEAR) Urine pH 5.5 (5.0-7.5) PH Ur Specific [place] 1.020 (1.002-1.030) Urine Protein 30 H (NEGATIVE) mg/dL Urine Glucose (UA) NEGATIVE (NEGATIVE) mg/dL Urine Ketones TRACE (NEGATIVE) mg/dL Urine Occult Blood NEGATIVE (NEGATIVE) Urine Nitrite NEGATIVE (NEGATIVE) Urine Bilirubin MODERATE H (NEGATIVE) Urine Urobilinogen 1 (NORMAL) (NORMAL) E.U./dL Ur Leukocyte Esterase NEGATIVE (NEGATIVE) Urine RBC 0-5 (0-5) /HPF Urine WBC 0-3 (0-5) /HPF Ur Squamous Epith Cells NONE SEEN (<= Few) Urine Bacteria Moderate H (None Seen) /HPF Urine Culture Comments NOT INDICATED Diagnostic Imaging Diagnostic Imaging Results: positive Read independently; negative Critical result Assessment/Plan Problem List (1) Acute kidney failure, unspecified: Impression: Acute kidney injury is a new problem being added based upon recent labs showing elevated BUN and creatinine and decreased eGFR. It has been observed that patient's oral intake has been poor. Bladder scan this morning showed only 130cc. She also has prescription for lactulose which might further be dehydrating her. Therefore, the current suspected cause for this acute kidney failure is dehydration. After going through patient's charts and other medical documents, we cannot determine why she is on lactulose, so we are removing this in hopes of reducing excess fluid loss. We are also starting IV normal saline due to the poor oral intake. Will continue to monitor and reevaluate kidney function and further investigate or treat as necessary. Qualifiers: Acute renal failure type: unspecified Qualified Code(s): N17.9 - Acute kidney failure, unspecified (2) Acute confusion: Impression: Andre has been consistently inconsistent with her level of confusion, fluctuating between orientation to name and place to just name. Currently she is improved to name and place, compared to yesterday. Based upon insignificant physical exam findings and imaging, and being unable to reliably gauge a baseline from the patient's visitors, this "acute confusion" may be patient's baseline. Social work has been in contact with patient's son regarding discharge planning. (3) Leukocytosis: Impression: Leukocytosis is still present, but trending down towards normal. Chest CT was insignificant for any acute changes. Urine labs were also insignificant. Will continue to monitor with followup blood work. No emergent work up currently necessary. Qualifiers: Leukocytosis type: unspecified Qualified Code(s): D72.829 - Elevated white blood cell count, unspecified (4) Atrial fibrillation, new onset: Impression: Most recent ekg shows sinus arrhythmia. Will continue to monitor for improvement or decline and treat as necessary. (5) Hypertension: Impression: Blood pressure is currently within normal limits but was elevated overnight. Remains asymptomatic, but will continue to monitor. Qualifiers: Hypertension type: unspecified Qualified Code(s): I10 - Essential (primary) hypertension (6) Elevated CK: Impression: CK was trending down, but we will draw a new CK to ensure it is continuing to trend toward normal limits. Will investigate further if it is abnormal. Documented by User: ANGELIKA Azul 06/29/24 14:47 Subjective Subjective Subjective: Patient was approached while eating lunch. She is in no apparent distress and is able to answer questions and carry on a conversation, consistent with the last few days of her stay. She denies any complaints, stating she just wants to go home. She is only alert to her name, unable to state where she is. Otherwise, not changes noted. Objective Lab Results 06/29/24 05:33 06/29/24 05:33 Assessment/Plan Problem List (1) Acute kidney failure, unspecified: Qualifiers: Acute renal failure type: unspecified Qualified Code(s): N17.9 - Acute kidney failure, unspecified (2) Acute confusion: (3) Leukocytosis: Qualifiers: Leukocytosis type: unspecified Qualified Code(s): D72.829 - Elevated white blood cell count, unspecified (4) Atrial fibrillation, new onset: (5) Hypertension: Qualifiers: Hypertension type: unspecified Qualified Code(s): I10 - Essential (primary) hypertension (6) Elevated CK:
--- NOTE | 2024-06-29 16:26 | PT Plan of Care ---
PT Inpatient Plan of Care DIAGNOSIS Diagnosis: Acute Confusion Diagnosis: GLF Referring Provider: Yara Field Patient Status: Inpatient CHIEF COMPLAINT Chief Complaint: Confusion, falls Onset of Chief Complaint: HOME HEALTH RN MEDICAL/SURGICAL HISTORY Medical History (Updated 06/29/24 @ 12:08 by Angel Hinojosa) Osteopenia Lumbar disc disorder Sigmoid diverticulosis TIA (transient ischemic attack) Hyperlipemia Hypertension Surgical History (Updated 06/27/24 @ 11:00 by Angel Hinojosa) Hx of appendectomy Hx of cholecystectomy BALANCE/FUNCTIONAL RESULTS Sitting Balance: Fair Standing Balance: Fair ASSESSMENT Assessment: Pt is a 78 y.o female recently admitted due to a GLF and acute confusion. He has a hx of TIA with known arterial stenosis and multiple falls. During PT eval, pt is A&Ox1 and occasionally place. She is unable to report on home access and PLOF. She rolled in bed with Rama using handrails and immediately reported dizziness. PT did not notice nystagmus and pt was able to complete supine to sit at EOB. In sitting pt still reported feeling dizzy but not worse, she would forgot what was happening and start to lay back. After a few minutes at EOB, PT noticed increased retropulsion that was corrected after multiple verbal and tactile cues. STS was MinAx2 with FWW and was able to amb 3 ft to bedside chair with MinAx2; retropulsion also noticed in standing and amb. Pt reported fatigue and slight dizziness so mobility progression ended, BP cuff malfunctioned which prevented checks throughout session. Throughout session pt reported dizziness and required consistent verbal and tactile cueing to re- orient to task and why we were working with her during the PT eval. Patient will benefit from skilled PT due to limited mobility, will continue to assess rehab potential. When medically cleared PT recommends discharge to memory care facility. GOALS Improve supine to sit to:: Standby Assist Improve sit to stand to:: Standby Assist Improve gait ability to:: SBA Advance Assistive Device to:: Front Wheeled Walker Increase distance walked to (in feet):: 15 Improve Sitting Balance to:: Good PLAN Frequency: 1-2x/day Duration: Until goals are met DISCHARGE RECOMMENDATIONS Discharge Location: Memory Care Facility Support/Services Needed: With assist DC Equipment Recommended: Front wheeled walker and Gait belt Transport Needs at Discharge: B.L.S Other: Pt demos retropulsion in sitting and standing, she quickly forgets task and situation.
[2024-06-30 05:37] LABS: BASOPHILS # (AUTO) 0.1 10^3/uL (0.0-0.1); BASOPHILS % (AUTO) 1.1 %; EOSINOPHILS # (AUTO) 0.2 10^3/uL (0.0-0.7); EOSINOPHILS % (AUTO) 2.8 %; HCT - HEMATOCRIT 32.4 % (37.0-47.0); HGB - HEMOGLOBIN 10.4 g/dL (12.0-16.0); LYMPHOCYTES # (AUTO) 1.5 10^3/uL (1.5-3.5); LYMPHOCYTES % (AUTO) 18.5 %; MEAN CORPUSCULAR HEMOGLOBIN 24.1 pg (27.0-31.0); MEAN CORPUSCULAR HGB CONC 32.1 g/dL (32.0-36.0); MEAN CORPUSCULAR VOLUME 75.2 fL (81.0-99.0); MEAN PLATELET VOLUME 9.9 fL (7.9-10.8); MONOCYTES # (AUTO) 0.7 10^3/uL (0.0-1.0); NEUTROPHILS # (AUTO) 5.5 10^3/uL (1.5-6.6); NEUTROPHILS % (AUTO) 68.1 %; PLT - PLATELET COUNT 384 10^3/uL (130-450); RED BLOOD COUNT 4.31 10^6/uL (4.20-5.40); RED CELL DISTRIBUTION WIDTH 15.4 % (12.0-15.0); WHITE BLOOD COUNT 8.1 x10^3/uL (4.8-10.8)
[2024-06-30 05:59] LABS: ALBUMIN 3.5 g/dL (3.2-5.5); ALBUMIN/GLOBULIN RATIO 1.3 (1.0-2.2); ALKALINE PHOSPHATASE 48 IU/L (42-121); ALT ALANINE AMINOTRANSFERASE 13 IU/L (10-60); AST ASPARTATE AMINOTRANSFERASE 14 IU/L (10-42); BILIRUBIN,TOTAL 0.7 mg/dL (0.2-1.0); BUN - BLOOD UREA NITROGEN 48 mg/dL (6-20); CALCIUM 8.7 mg/dL (8.5-10.3); CARBON DIOXIDE - CO2 24 mmol/L (21-32); CHLORIDE 103 mmol/L (101-111); CREATININE 1.3 mg/dL (0.6-1.3); GFR - MDRD 40 (>89); GLUCOSE 111 mg/dL (74-104); IONIZED CALCIUM IF INDICATED NO; POTASSIUM 3.6 mmol/L (3.5-4.5); SODIUM 135 mmol/L (135-145); TOTAL PROTEIN 6.2 g/dL (6.4-8.9)
[2024-06-30] MEDS: METOPROLOL SUCCINATE 50 MG TABLET PO SCH (09:39)
[2024-06-30 10:16] LABS: % IRON SATURATION 6 % (20-50); IRON 18 ug/dL (50-212); TOTAL IRON BINDING CAPACITY 309 ug/dL (250-450); TRANSFERRIN 221 mg/dL (203-362)
--- NOTE | 2024-06-30 14:13 | PROVIDER PROGRESS NOTE ---
Subjective Prog Note Date Prog Note Date: 06/30/24 Prog Note Time: 09:00 Subjective Pt reports feeling: No change Subjective: She is oriented x 1 today. She says she has been laying in bed so long that it is making her lazy. otherwise without complaints. Her heart rate has been low, and RN has held metoprolol. Current Medications Current Medications Current Medications: Current Medications Generic Name Dose Route Start Last Admin Trade Name Freq PRN Reason Stop Dose Admin Acetaminophen 650 mg 06/27/24 10:59 06/30/24 05:10 Acetaminophen 325 Mg Tablet PO 650 mg Q4HR PRN Administration Pain 1 to 4, or Fever Amlodipine Besylate 2.5 mg 06/28/24 09:00 06/30/24 08:02 Amlodipine 5 Mg Tablet PO 2.5 mg DAILY ALEAH Administration Aspirin 81 mg 06/28/24 09:00 06/30/24 08:02 Aspirin Ec 81 Mg Tablet PO 81 mg DAILY ALEAH Administration Atorvastatin Calcium 40 mg 06/27/24 21:00 06/29/24 21:48 Atorvastatin 40 Mg Tablet PO 40 mg QPM ALEAH Administration Cetirizine HCl 10 mg 06/27/24 16:24 Cetirizine 10 Mg Tablet PO DAILY PRN Allergy Symptoms Heparin Sodium (Porcine) 5,000 unit 06/27/24 21:00 06/30/24 08:02 Heparin 5,000 Unit/Ml Vial SUBQ 5,000 unit BID ALEAH Administration Lisinopril 20 mg 06/27/24 21:00 06/30/24 08:02 Lisinopril 20 Mg Tablet PO 20 mg BID ALEAH Administration Metoprolol Succinate 50 mg 06/30/24 09:00 06/30/24 09:39 Metoprolol Succinate 50 Mg Tablet PO Not Given DAILY ALEAH Multivitamins/Minerals 1 tab 06/28/24 16:00 06/30/24 08:02 Multivitamin W/Minerals Tablet PO 1 tab DAILYWM ALEAH Administration Ondansetron HCl 4 mg 06/27/24 10:59 06/27/24 12:08 Ondansetron Odt 4 Mg Tablet TL 4 mg Q6HR PRN Administration Nausea / Vomiting Potassium Chloride 20 meq 06/28/24 08:00 06/30/24 08:02 Potassium Chloride 20 Meq/15 Ml Udc PO 20 meq DAILYWM ALEAH Administration Sodium Chloride 10 ml 06/27/24 10:59 Sodium Chloride Flush 0.9% 10 Ml Syringe IVP PRN PRN NEEDED PER PROVIDER ORDERS Sodium Chloride 10 ml 06/27/24 17:00 06/30/24 11:08 Sodium Chloride Flush 0.9% 10 Ml Syringe IVP 10 ml [id number],1700 [facility] Administration Objective Vital Signs/Intake & Output Reviewed Vital Signs: Yes Vital Signs: Vital Signs x48h Temp Pulse Resp BP BP Pulse Ox 06/30/24 09:39 55 L 136/54 H 06/30/24 07:41 37.1 C 63 16 167/67 H 92 Intake & Output: Intake & Output 06/28/24 06/29/24 06/30/24 07/01/24 05:59 05:59 05:59 05:59 Intake Total 520 / 520 890 / 890 1480 / 1480 220 / 220 Output Total 400 / 400 220 / 220 Balance 520 / 520 490 / 490 1260 / 1260 220 / 220 Weight (kg) 59 kg Objective General Appearance: positive No acute distress and Alert; negative Mild distress, Anxious or Lethargic Eyes Bilateral: positive Normal inspection, PERRL and No lid inflammation ENT: positive ENT inspection nml and Pharynx nml Neck: positive Nml inspection and Trachea midline Respiratory: positive Chest non-tender, No respiratory distress and Breath sounds nml; negative Wheezes, Rales or Rhonchi Cardiovascular: positive No murmur, No gallop, Irregularly irregular and Bradycardia; negative Regular rate & rhythm Abdomen: positive Non-tender, Nml bowel sounds and No distention; negative Tenderness Back: positive Nml inspection Skin: positive Color nml, Warm and Dry Extremities: positive Non-tender, Full ROM, Nml appearance and No pedal edema Neurologic/Psychiatric: positive CN's nml (2-12), Motor nml, Sensation nml, Mood/affect nml, Disoriented to place and Disoriented to time; negative Oriented x3, Weakness, Sensory loss, Facial droop or Slurred/abnml speech Lab Results 06/30/24 05:25 06/30/24 05:25 Other Labs: Lab Results x24hrs 06/30/24 06/29/24 Range/Units 05:25 05:35 WBC 8.1 (4.8-10.8) x10^3/uL RBC 4.31 (4.20-5.40) 10^6/uL Hgb 10.4 L (12.0-16.0) g/dL Hct 32.4 L (37.0-47.0) % MCV 75.2 L (81.0-99.0) fL MCH 24.1 L (27.0-31.0) pg MCHC 32.1 (32.0-36.0) g/dL RDW 15.4 H (12.0-15.0) % Plt Count 384 (130-450) 10^3/uL MPV 9.9 (7.9-10.8) fL Neut # (Auto) 5.5 (1.5-6.6) 10^3/uL Lymph # (Auto) 1.5 (1.5-3.5) 10^3/uL [place] # (Auto) 0.7 (0.0-1.0) 10^3/uL Eos # (Auto) 0.2 (0.0-0.7) 10^3/uL Baso # (Auto) 0.1 (0.0-0.1) 10^3/uL Absolute Nucleated RBC 0.00 x10^3/uL Nucleated RBC % 0.0 /100WBC Sodium 135 (135-145) mmol/L Potassium 3.6 (3.5-4.5) mmol/L Chloride 103 (101-111) mmol/L Carbon Dioxide 24 (21-32) mmol/L Anion Gap 8.0 (6-13) BUN 48 H (6-20) mg/dL Creatinine 1.3 (0.6-1.3) mg/dL Estimated GFR (MDRD) 40 L (>89) Glucose 111 H (74-104) mg/dL Calcium 8.7 (8.5-10.3) mg/dL Ionized Calcium NO Iron 18 L (50-212) ug/dL TIBC 309 (250-450) ug/dL % Saturation 6 L (20-50) % Transferrin 221 (203-362) mg/dL Total Bilirubin 0.7 (0.2-1.0) mg/dL AST 14 (10-42) IU/L ALT 13 (10-60) IU/L Alkaline Phosphatase 48 (42-121) IU/L Ammonia 21.3 (18-72) umol/L Total Creatine Kinase 109 (30-223) IU/L Total Protein 6.2 L (6.4-8.9) g/dL Albumin 3.5 (3.2-5.5) g/dL Globulin 2.7 (2.1-4.2) g/dL Albumin/Globulin Ratio 1.3 (1.0-2.2) Diagnostic Imaging Diagnostic Imaging Results: positive Read independently; negative Critical result Assessment/Plan Problem List (1) Acute kidney failure, unspecified: Impression: Her creatinine has quickly is come back down to normal., This was after 1 L of IV fluids administered over the course of a day. We have also encouraged p.o. intake. We are being very judicious with her use of IV fluids given the national shortage of fluids at this time. Laboratory Tests 06/28/24 06/29/24 06/30/24 05:50 05:33 05:25 Creatinine 1.4 H 2.0 H 1.3 Qualifiers: Acute renal failure type: unspecified Qualified Code(s): N17.9 - Acute kidney failure, unspecified (2) Acute confusion: Impression: Andre has been consistently inconsistent with her level of confusion, fluctuating between orientation to name and place to just name. Today she is oriented to self only. She does not have any additional complaints. Her son Bobo is actively searching out appropriate facility for her in the [facility]. That is where he lives. I have discussed this patient with social work today we are actively pursuing avenues for discharge. She is medically clear for discharge today. She does not however have a discharge plan. (3) Leukocytosis: Impression: Resolved without treatment Laboratory Tests 06/27/24 06/28/24 06/29/24 07:21 05:50 05:33 WBC 13.9 H 17.8 H 12.4 H 06/30/24 05:25 WBC 8.1 . Qualifiers: Leukocytosis type: unspecified Qualified Code(s): D72.829 - Elevated white blood cell count, unspecified (4) Atrial fibrillation, new onset: Impression: Most recent ekg shows sinus arrhythmia. Will continue to monitor for improvement or decline and treat as necessary. I have discontinued her diltiazem therapy. At home she is on metoprolol 75 mg daily. I de-escalated this to 50 mg daily yesterday due to her relative bradycardia. It has been held this morning due to a heart rate of less than 65. She has been hypertensive. (5) Hypertension: Impression: Mildly hypertensive. She is on lisinopril 20 mg twice daily. We will continue this to attempt to control her hypertension. I would like for her to get metoprolol for her atrial fibrillation but her heart rate has been too low. Selected Entries 06/30/24 04:58 06/30/24 07:41 06/30/24 09:39 Pulse Rate [Brachial] 67 63 55 L Blood Pressure [Left Brachial artery] 176/77 H 136/54 H Blood Pressure [Right Brachial artery] 167/67 H 06/30/24 14:23 Pulse Rate [Brachial] 59 L Blood Pressure [Left Brachial artery] 154/48 H Blood Pressure [Right Brachial artery] Qualifiers: Hypertension type: unspecified Qualified Code(s): I10 - Essential (primary) hypertension (6) Elevated CK: Impression: CK has downtrended sufficiently. Laboratory Tests 06/27/24 06/27/24 06/29/24 07:46 16:36 05:35 Total Creatine Kinase 349 H 241 H 109 I have spent 25 minutes in the care of this patient today. This includes time [id number], review and ordering of diagnostic imaging and laboratory studie, s and consultation with other providers.. Monitoring the patient's signs symptoms, evaluation of medication effectiveness and patient's response to treatment. .
--- NOTE | 2024-07-01 14:25 | PROVIDER PROGRESS NOTE ---
Subjective Prog Note Date Prog Note Date: 07/01/24 Prog Note Time: 08:30 Subjective Pt reports feeling: No change Subjective: Her son Bobo and DADA Burns are at bedside this AM, [place]. They are planning on taking her back to [place], [place] for detention rehab and have chosen a location. This AM when I initially came in, she is sitting on the edge of the bed. She has been warned not to get up alone. Since she has been here, she seems more interactive and interested in the staff on a daily basis. She is joking with her son. Current Medications Current Medications Current Medications: Current Medications Generic Name Dose Route Start Last Admin Trade Name Freq PRN Reason Stop Dose Admin Acetaminophen 650 mg 06/27/24 10:59 07/01/24 07:59 Acetaminophen 325 Mg Tablet PO 650 mg Q4HR PRN Administration Pain 1 to 4, or Fever Amlodipine Besylate 2.5 mg 06/28/24 09:00 07/01/24 07:58 Amlodipine 5 Mg Tablet PO 2.5 mg DAILY ALEAH Administration Aspirin 81 mg 06/28/24 09:00 07/01/24 07:59 Aspirin Ec 81 Mg Tablet PO 81 mg DAILY ALEAH Administration Atorvastatin Calcium 40 mg 06/27/24 21:00 06/30/24 20:00 Atorvastatin 40 Mg Tablet PO 40 mg QPM ALEAH Administration Cetirizine HCl 10 mg 06/27/24 16:24 Cetirizine 10 Mg Tablet PO DAILY PRN Allergy Symptoms Ferrous Sulfate 325 mg 07/02/24 08:00 Ferrous Sulfate 325 Mg Tablet PO DAILYWM ALEAH Heparin Sodium (Porcine) 5,000 unit 06/27/24 21:00 07/01/24 08:00 Heparin 5,000 Unit/Ml Vial SUBQ 5,000 unit BID ALEAH Administration Lisinopril 20 mg 06/27/24 21:00 07/01/24 07:59 Lisinopril 20 Mg Tablet PO 20 mg BID ALEAH Administration Metoprolol Succinate 50 mg 06/30/24 09:00 07/01/24 08:30 Metoprolol Succinate 50 Mg Tablet PO 50 mg DAILY ALEAH Administration Multivitamins/Minerals 1 tab 06/28/24 16:00 07/01/24 07:57 Multivitamin W/Minerals Tablet PO 1 tab DAILYWM ALEAH Administration Ondansetron HCl 4 mg 06/27/24 10:59 06/30/24 19:54 Ondansetron Odt 4 Mg Tablet TL 4 mg Q6HR PRN Administration Nausea / Vomiting Potassium Chloride 20 meq 06/28/24 08:00 07/01/24 07:59 Potassium Chloride 20 Meq/15 Ml Udc PO 20 meq DAILYWM ALEAH Administration Objective Vital Signs/Intake & Output Reviewed Vital Signs: Yes Vital Signs: Vital Signs x48h Temp Pulse Resp BP Pulse Ox 07/01/24 08:17 36.6 C 62 18 118/71 93 Intake & Output: Intake & Output 06/29/24 06/30/24 07/01/24 07/02/24 05:59 05:59 05:59 05:59 Intake Total 890 / 890 1480 / 1480 710 / 710 Output Total 400 / 400 220 / 220 150 / 150 Balance 490 / 490 1260 / 1260 710 / 710 -150 / -150 Objective General Appearance: positive No acute distress and Alert Eyes Bilateral: positive Normal inspection ENT: positive ENT inspection nml Neck: positive Nml inspection Respiratory: positive Chest non-tender, No respiratory distress and Breath sounds nml Cardiovascular: positive Regular rate & rhythm Abdomen: positive Non-tender and No distention Back: positive Nml inspection Skin: positive Color nml Extremities: positive Non-tender and No pedal edema Neurologic/Psychiatric: positive Disoriented to time Lab Results 07/02/24 04:55 07/02/24 04:55 Other Labs: Lab Results x24hrs 06/30/24 06/29/24 Range/Units 05:25 05:35 WBC 8.1 (4.8-10.8) x10^3/uL RBC 4.31 (4.20-5.40) 10^6/uL Hgb 10.4 L (12.0-16.0) g/dL Hct 32.4 L (37.0-47.0) % MCV 75.2 L (81.0-99.0) fL MCH 24.1 L (27.0-31.0) pg MCHC 32.1 (32.0-36.0) g/dL RDW 15.4 H (12.0-15.0) % Plt Count 384 (130-450) 10^3/uL MPV 9.9 (7.9-10.8) fL Neut # (Auto) 5.5 (1.5-6.6) 10^3/uL Lymph # (Auto) 1.5 (1.5-3.5) 10^3/uL [place] # (Auto) 0.7 (0.0-1.0) 10^3/uL Eos # (Auto) 0.2 (0.0-0.7) 10^3/uL Baso # (Auto) 0.1 (0.0-0.1) 10^3/uL Absolute Nucleated RBC 0.00 x10^3/uL Nucleated RBC % 0.0 /100WBC Sodium 135 (135-145) mmol/L Potassium 3.6 (3.5-4.5) mmol/L Chloride 103 (101-111) mmol/L Carbon Dioxide 24 (21-32) mmol/L Anion Gap 8.0 (6-13) BUN 48 H (6-20) mg/dL Creatinine 1.3 (0.6-1.3) mg/dL Estimated GFR (MDRD) 40 L (>89) Glucose 111 H (74-104) mg/dL Calcium 8.7 (8.5-10.3) mg/dL Ionized Calcium NO Iron 18 L (50-212) ug/dL TIBC 309 (250-450) ug/dL % Saturation 6 L (20-50) % Transferrin 221 (203-362) mg/dL Total Bilirubin 0.7 (0.2-1.0) mg/dL AST 14 (10-42) IU/L ALT 13 (10-60) IU/L Alkaline Phosphatase 48 (42-121) IU/L Ammonia 21.3 (18-72) umol/L Total Creatine Kinase 109 (30-223) IU/L Total Protein 6.2 L (6.4-8.9) g/dL Albumin 3.5 (3.2-5.5) g/dL Globulin 2.7 (2.1-4.2) g/dL Albumin/Globulin Ratio 1.3 (1.0-2.2) Assessment/Plan Problem List (1) Acute kidney failure, unspecified: Impression: Resolved. Her creatinine has quickly come back down to normal. This was after 1 L of IV fluids administered over the course of a day. no supplemental fluid given since that time. We have also encouraged p.o. intake. We are being very judicious with her use of IV fluids given the national shortage of fluids at this time. Laboratory Tests 06/29/24 06/30/24 07/02/24 05:33 05:25 04:55 Creatinine 2.0 H 1.3 0.7 Qualifiers: Acute renal failure type: unspecified Qualified Code(s): N17.9 - Acute kidney failure, unspecified (2) Acute confusion: Impression: Andre has been consistently inconsistent with her level of confusion, fluctuating between orientation to name and place to just name. Today she knows that it is Tuesday, and June but not the year. Son and DIL have chosen [facility] in [place], [place]. social work and insurance authorization are being processed. She was medically clear for dc on 06/30. Today have had to make some blood pressure medication a pharmacy technician infusion's minutes but overall this does not affect her ability to leave the hospital. At the beginning of the day the plan was that she would go to [facility] [place] in [facility].. Apparently as the day has progressed the discharge plan has changed and she will now be going to live with her son and [id number] in the area. Physical therapy is working with the patient and her family to get needed DME. This will be a somewhat difficult transition of care she has no established care providers in [place]. (3) Leukocytosis: Impression: Resolved without treatment Laboratory Tests 06/28/24 06/29/24 06/30/24 05:50 05:33 05:25 WBC 17.8 H 12.4 H 8.1 07/02/24 04:55 WBC 8.3 . Qualifiers: Leukocytosis type: unspecified Qualified Code(s): D72.829 - Elevated white blood cell count, unspecified (4) Atrial fibrillation, new onset: Impression: Most recent ekg shows sinus arrhythmia. Will continue to monitor for improvement or decline and treat as necessary. I have discontinued her diltiazem therapy. At home she is on metoprolol 75 mg daily. I de-escalated this to 50 mg daily due to her relative bradycardia. It has been held intermittently for HR <65 I will not recommend anticoagulation, as this patient has proven her ability to fall, and would not want her to come to greater harm as a result of fall on anticoagulants. (5) Hypertension: Impression: Mildly hypertensive. She is on lisinopril 20 mg twice daily and amlodipine 2.5mg daily We will continue this to attempt to control her hypertension. This afternoon the RN reports to me a blood pressure of 198/70. She is taken all of her antihypertensives today. I have prescribed hydralazine 10 mg as needed for elevated blood pressure.This seems to be an isolated incident. Selected Entries 07/01/24 22:48 07/01/24 23:25 07/02/24 07:36 Blood Pressure [Left Brachial artery] 150/85 H 176/70 H Blood Pressure [Right Brachial artery] 185/73 H Qualifiers: Hypertension type: unspecified Qualified Code(s): I10 - Essential (primary) hypertension (6) Elevated CK: Impression: CK has downtrended sufficiently, resolved. Laboratory Tests 06/27/24 06/27/24 06/29/24 07:46 16:36 05:35 Total Creatine Kinase 349 H 241 H 109 I have spent 40 minutes in the care of this patient today. This includes time [id number], review and ordering of diagnostic imaging and laboratory studies. Monitoring the patient's signs symptoms, evaluation of medication effectiveness and patient's response to treatment.
[2024-07-02 05:12] LABS: BASOPHILS # (AUTO) 0.1 10^3/uL (0.0-0.1); BASOPHILS % (AUTO) 1.1 %; EOSINOPHILS # (AUTO) 0.4 10^3/uL (0.0-0.7); EOSINOPHILS % (AUTO) 5.2 %; HCT - HEMATOCRIT 33.3 % (37.0-47.0); HGB - HEMOGLOBIN 10.2 g/dL (12.0-16.0); LYMPHOCYTES # (AUTO) 1.8 10^3/uL (1.5-3.5); LYMPHOCYTES % (AUTO) 21.2 %; MEAN CORPUSCULAR HEMOGLOBIN 23.3 pg (27.0-31.0); MEAN CORPUSCULAR HGB CONC 30.6 g/dL (32.0-36.0); MONOCYTES # (AUTO) 0.8 10^3/uL (0.0-1.0); MONOCYTES % (AUTO) 9.7 %; NEUTROPHILS # (AUTO) 5.2 10^3/uL (1.5-6.6); NEUTROPHILS % (AUTO) 62.2 %; PLT - PLATELET COUNT 396 10^3/uL (130-450); RED BLOOD COUNT 4.38 10^6/uL (4.20-5.40); RED CELL DISTRIBUTION WIDTH 15.4 % (12.0-15.0); WHITE BLOOD COUNT 8.3 x10^3/uL (4.8-10.8)
[2024-07-02 05:29] LABS: CALCIUM 8.8 mg/dL (8.5-10.3); CREATININE 0.7 mg/dL (0.6-1.3); POTASSIUM 4.2 mmol/L (3.5-4.5)
[2024-07-02] MEDS: FERROUS SULFATE 325 MG TABLET PO SCH (08:09)
--- NOTE | 2024-07-02 12:15 | Discharge Summary ---
"Discharge Summary Admit Date: 06/27/24 Discharge Date: 07/03/24 Discharging Provider: Yara Field PA-C Primary Care Provider: Shailesh Daniel Code Status: Do Not Attempt Resuscitation DIAGNOSES Discharge Diagnoses with Status of Each Condition: Acute renal failure, resolved. Acute confusion, present on admission Leukocytosis, resolved atrial fibrillation, new onset on admission resolved. Hypertension, present on admission. Elevated CK, resolved HPI History of Present Illness: Patient is a 78 year old female being admitted from the ER after an unwitnessed fall. It was reported patient's son found her on the floor during the night. It is unknown how long she was there, but is assumed to be a few hours. Patient was reported by son and EMS to be very confused and not acting appropriate to baseline. Initial ER evaluation indicated GCS of 14. No signs of obvious trauma, head injury, or focal deficits were noted by EMS. Patient states all she remembers is getting up then passing out immediately. Patient currently denies any complaints to include headache, nausea, vomiting, chest pain, shortness of breath. Overall, she reports feeling fine. While speaking with patient's son, it is reported that she normally is unaware of the date/month. He also states when finding patient on the floor, no abnormalities were noted. He reports speech was normal with no signs of slurring. Face and extremities appeared symmetrical. No unusual movements, jerking, or seizure like activity was reported. CONSULTS | PROCEDURES Procedures: CT head: No acute intracranial pathology CT pelvis: Degenerative changes of the lower lumbar spine with central stenosis, degenerative changes of bilateral hips and SI joints without evidence of fracture or dislocation CT angio head and neck no acute intracranial arterial abnormality, moderate to severe origin stenosis of the proximal left vertebral artery no significant internal carotid stenosis. Moderate centrilobular emphysema Chest x-ray: Mildly enlarged cardio pericardial silhouette and leidy, pulmonary vessels. No radiographic evidence of acute abnormality Brain MRI: No findings of acute or subacute infarction Chest CT: Scattered atelectasis of bilateral lower lung newman no focal infiltrate, pleural effusion or pneumothorax. Mild to moderate atherosclerotic calcifications in coronary vessels and thoracic aorta. No thoracic aortic aneurysm. No mediastinal or hilar lymphadenopathy. HOSPITAL COURSE Hospital Course: 1) Acute kidney failure, unspecified: Impression: Resolved. Her creatinine has quickly come back down to normal. This was after 1 L of IV fluids administered over the course of a day. no supplemental fluid given since that time. We have also encouraged p.o. intake. We are being very judicious with her use of IV fluids given the national shortage of fluids at this time. Laboratory Tests 06/29/24 06/30/24 07/02/24 05:33 05:25 04:55 Creatinine 2.0 H 1.3 0.7 Qualifiers: Acute renal failure type: unspecified Qualified Code(s): N17.9 - Acute kidney failure, unspecified (2) Acute confusion: Impression: Paient has been consistently inconsistent with her level of confusion, fluctuating between orientation to name and place to just name. Son and DIL have chosen [facility] in [place], [place]. social work and insurance authorization are being processed. She was medically clear for dc on 06/30. At the beginning of the day the plan [facility] Apparently as the day has progressed the discharge plan has changed and she will now be going to live with her son and [id number] in the area. Physical therapy is working with the patient and her family to get needed DME. This will be a somewhat difficult transition of care she has no established care providers in [place]. (3) Leukocytosis: Impression: Resolved without treatment Laboratory Tests 06/28/24 06/29/24 06/30/24 05:50 05:33 05:25 WBC 17.8 H 12.4 H 8.1 07/02/24 04:55 WBC 8.3 . Qualifiers: Leukocytosis type: unspecified Qualified Code(s): D72.829 - Elevated white blood cell count, unspecified (4) Atrial fibrillation, new onset: Impression: Most recent ekg shows sinus arrhythmia. Will continue to monitor for improvement or decline and treat as necessary. I have discontinued her diltiazem therapy. At home she is on metoprolol 75 mg daily. I de-escalated this to 50 mg daily due to her relative bradycardia. It has been held intermittently for HR <65 I will not recommend anticoagulation, as this patient has proven her ability to fall, and would not want her to come to greater harm as a result of fall on anticoagulants. (5) Hypertension: Impression: Mildly hypertensive. She is on lisinopril 20 mg twice daily and amlodipine 2.5mg daily We will continue this to attempt to control her hypertension. This afternoon the RN reports to me a blood pressure of 198/70. She is taken all of her antihypertensives today. I have prescribed hydralazine 10 mg as needed for elevated blood pressure.This seems to be an isolated incident. Selected Entries 07/01/2422:48 07/01/2423:25 07/02/2407:36 Blood Pressure [Left Brachial artery] 150/85 H 176/70 H Blood Pressure [Right Brachial artery] 185/73 H Qualifiers: Hypertension type: unspecified Qualified Code(s): I10 - Essential (primary) hypertension (6) Elevated CK: Impression: CK has downtrended sufficiently, resolved. Laboratory Tests 06/27/24 06/27/24 06/29/24 07:46 16:36 05:35 Total Creatine Kinase 349 H 241 H 109 Medication adjustments: This patient has been on lactulose and spironolactone for quite some time. I have combed through her primary care notes and I see that it appears that this was continued when that provider took over her care. I have questioned her family close this lady about past history of alcoholism alcohol use or any liver failure. And my questions have been answered in the negative. I therefore discontinued her spironolactone and lactulose. I would like anyone assuming care of her to be aware of this should there be problems going forward. ALLERGIES Allergies Allergy/AdvReac Type Severity Reaction Status Date / Time morphine Allergy Unknown Unknown Verified 06/27/24 10:55 Sulfa (Sulfonamide Allergy Unknown Unknown Verified 06/27/24 10:54 Antibiotics) MEDICATIONS Ambulatory Orders Medication Instructions Recorded Confirmed lisinopril 20 mg tablet 20 mg PO BID 01/28/15 06/27/24 cetirizine 10 mg tablet 10 mg PO DAILY PRN Allergy Symptoms 01/04/18 06/27/24 aspirin 81 mg tablet,delayed 81 mg PO DAILY 01/05/18 06/27/24 release (Adult Aspirin Regimen) amlodipine 2.5 mg tablet 2.5 mg PO DAILY 06/27/24 06/27/24 atorvastatin 40 mg tablet 40 mg PO QPM 06/27/24 06/27/24 acetaminophen 325 mg tablet 650 mg (2 x 325 mg) PO Q4HR PRN 07/02/24 Pain 1 to 4, or Fever #30 tabs ferrous sulfate 325 mg (65 mg 325 mg PO DAILYWM #30 tabs 07/02/24 iron) tablet metoprolol succinate 50 mg 50 mg PO DAILY #30 tabs 07/02/24 tablet,extended release 24 hr potassium chloride 20 mEq/15 mL 20 meq (15 mL) PO DAILYWM #1,200 mL 07/02/24 oral liquid PHYSICAL EXAM AT DISCHARGE Physical Exam Other/Comments: General Appearance: positive No acute distress and Alert Eyes Bilateral: positive Normal inspection ENT: positive ENT inspection nml Neck: positive Nml inspection Respiratory: positive Chest non-tender, No respiratory distress and Breath sounds nml Cardiovascular: positive Regular rate & rhythm Abdomen: positive Non-tender and No distention Back: positive Nml inspection Skin: positive Color nml Extremities: positive Non-tender and No pedal edema Neurologic/Psychiatric: positive Disoriented to time LABS 07/03/24 07:10 07/03/24 07:10 FOLLOW UP Follow Up: new PCP in [facility]. no referrals made. TIME SPENT Time Spent in Discharge (Minutes): 45 Discharge Plan Discharge Patient Disposition: Home, Self Care Condition: Stable Prescriptions: New acetaminophen 325 mg Tablet 650 mg PO Q4HR PRN (Reason: Pain 1 to 4, or Fever) Qty: 30 0RF ferrous sulfate 325 mg (65 mg iron) Tablet 325 mg PO DAILYWM Qty: 30 0RF metoprolol succinate 50 mg Tablet Extended Release 24 Hr 50 mg PO DAILY Qty: 30 0RF potassium chloride 20 mEq/15 mL Liquid 20 meq PO DAILYWM Qty: 1200 0RF Continued lisinopril 20 MG tablet 20 mg PO BID cetirizine 10 MG tablet 10 mg PO DAILY PRN (Reason: Allergy Symptoms) aspirin [Adult Aspirin Regimen] 81 MG tablet,delayed release (DR/EC) 81 mg PO DAILY atorvastatin 40 mg tablet 40 mg PO QPM amlodipine 2.5 mg tablet 2.5 mg PO DAILY Discontinued lactulose 10 gram/15 mL (15 mL) solution 15 ml PO QDAY Qty: 450 2RF Rx Instructions: TAKE 15ML TO 30ML BY MOUTH ONCE DAILY NEEDED metoprolol succinate 50 mg tablet extended release 24 hr 75 mg PO DAILY Activity Restrictions: Activity as Tolerated Health Concerns: You came into the hospital after having a fall at home. There were indications in your labs at that time that you have been sitting on the floor for some time after this fall. It seems like things were not going well at home. You are having trouble doing the things she needed to do to take care of yourself. Since you have come into the hospital we have changed her medications slightly. We have stopped your spironolactone and your lactulose. These medications are normally used for liver failure and we see no indication that you have this problem. It is for this reason that I discontinued this. We have continued to treat your blood pressure. You also have a new diagnosis of atrial fibrillation. You are on a medication called metoprolol to control both your heart rate and your blood pressure. I have adjusted this medication slightly since you have been in the hospital. You are also on blood pressure medicine called lisinopril. You have been on this medicine for some time. Since you have been in the hospital you have not been smoking cigarettes. We recommend that you do not smoke cigarettes again. You also have an iron deficiency anemia and we have placed you on iron replacement for this. Please eat plenty of fresh fruits and vegetables while you are on iron to help with constipation. Also realized that the iron can make your stools black. Please call and arrange to have a primary care doctor as soon as possible when you get to [place]. You will need someone to help manage your care. Care Plan Goals: Obtain new primary care provider [facility] Do not smoke cigarettes Take your medications as prescribed, these are important for your heart and your blood pressure. Print Language: Cook Islander Patient Instructions: Atrial Fibrillation"
[2024-07-02] MEDS: hydrALAZINE 25 MG TABLET PO PRN (16:49)
[2024-07-03 07:27] LABS: BASOPHILS # (AUTO) 0.1 10^3/uL (0.0-0.1); BASOPHILS % (AUTO) 1.3 %; EOSINOPHILS # (AUTO) 0.4 10^3/uL (0.0-0.7); EOSINOPHILS % (AUTO) 4.8 %; HGB - HEMOGLOBIN 11.4 g/dL (12.0-16.0); LYMPHOCYTES # (AUTO) 1.9 10^3/uL (1.5-3.5); LYMPHOCYTES % (AUTO) 21.9 %; MEAN CORPUSCULAR HGB CONC 31.7 g/dL (32.0-36.0); MEAN CORPUSCULAR VOLUME 75.8 fL (81.0-99.0); MEAN PLATELET VOLUME 9.5 fL (7.9-10.8); MONOCYTES # (AUTO) 0.8 10^3/uL (0.0-1.0); MONOCYTES % (AUTO) 9.2 %; NEUTROPHILS # (AUTO) 5.5 10^3/uL (1.5-6.6); NEUTROPHILS % (AUTO) 62.2 %; PLT - PLATELET COUNT 428 10^3/uL (130-450); RED BLOOD COUNT 4.75 10^6/uL (4.20-5.40); RED CELL DISTRIBUTION WIDTH 15.3 % (12.0-15.0); WHITE BLOOD COUNT 8.7 x10^3/uL (4.8-10.8)
[2024-07-03 07:31] LABS: CALCIUM 8.6 mg/dL (8.5-10.3); CREATININE 0.8 mg/dL (0.6-1.3); POTASSIUM 4.4 mmol/L (3.5-4.5)
[2024-07-03 07:49] VITALS: O2SAT 97
--- NOTE | 2024-07-03 16:45 | PT Plan of Care ---
PT Inpatient Plan of Care DIAGNOSIS Diagnosis: Acute Confusion Diagnosis: GLF Referring Provider: Yara Field Patient Status: Inpatient CHIEF COMPLAINT Chief Complaint: Confusion, falls Onset of Chief Complaint: [employer] [place] MEDICAL/SURGICAL HISTORY Medical History (Updated 07/02/24 @ 12:11 by ANEGLIKA Azul) Osteopenia Lumbar disc disorder Sigmoid diverticulosis TIA (transient ischemic attack) Hyperlipemia Hypertension Surgical History (Updated 06/27/24 @ 11:00 by Angel Hinojosa) Hx of appendectomy Hx of cholecystectomy BALANCE/FUNCTIONAL RESULTS Sitting Balance: Fair Standing Balance: Fair ASSESSMENT Assessment: Pt is a 78 y.o female recently admitted due to a GLF and acute confusion. He has a hx of TIA with known arterial stenosis and multiple falls. During PT eval, pt is A&Ox1 and occasionally place. She is unable to report on home access and PLOF. She rolled in bed with Rama using handrails and immediately reported dizziness. PT did not notice nystagmus and pt was able to complete supine to sit at EOB. In sitting pt still reported feeling dizzy but not worse, she would forgot what was happening and start to lay back. After a few minutes at EOB, PT noticed increased retropulsion that was corrected after multiple verbal and tactile cues. STS was MinAx2 with FWW and was able to amb 3 ft to bedside chair with MinAx2; retropulsion also noticed in standing and amb. Pt reported fatigue and slight dizziness so mobility progression ended, BP cuff malfunctioned which prevented checks throughout session. Throughout session pt reported dizziness and required consistent verbal and tactile cueing to re- orient to task and why we were working with her during the PT eval. Patient will benefit from skilled PT due to limited mobility, will continue to assess rehab potential. When medically cleared PT recommends discharge to memory care facility. GOALS Improve supine to sit to:: Standby Assist Improve sit to stand to:: Standby Assist Improve gait ability to:: SBA Advance Assistive Device to:: Front Wheeled Walker Increase distance walked to (in feet):: 15 Improve Sitting Balance to:: Good PLAN Frequency: 1-2x/day Duration: Until goals are met DISCHARGE RECOMMENDATIONS Discharge Location: Memory Care Facility Support/Services Needed: With assist DC Equipment Recommended: Front wheeled walker and Gait belt Transport Needs at Discharge: B.L.S Other: Pt demos retropulsion in sitting and standing, she quickly forgets task and situation.
[2024-07-05 11:10] LABS: HBsAG SCREEN Negative; HCV AB Non-reactive; HEPATITIS B CORE IGM AB Negative
== END 2024-07-03 09:48 | disposition home or self-care (01) | DRG 683 ==
LOC: MS2 07:14 → ED 07:14 → MS2 11:04
PROVIDERS: ADMIT Physician Assistant Medical; ATTEND Physician Assistant Medical
DX: R79.89 Other specified abnormal findings of blood chemistry; F03.90 Unspecified dementia, unspecified severity, without behavioral disturbance, psychotic disturbance, mood disturbance, and anxiety; D64.9 Anemia, unspecified; F17.210 Nicotine dependence, cigarettes, uncomplicated; M16.0 Bilateral primary osteoarthritis of hip; I10 Essential (primary) hypertension; Z86.73 Personal history of transient ischemic attack (TIA), and cerebral infarction without residual deficits; N17.9 Acute kidney failure, unspecified; Z79.899 Other long term (current) drug therapy; Z66 Do not resuscitate; W19.XXXA Unspecified fall, initial encounter; R41.0 Disorientation, unspecified; E87.5 Hyperkalemia; I48.91 Unspecified atrial fibrillation; E78.5 Hyperlipidemia, unspecified; R74.8 Abnormal levels of other serum enzymes; R10.2 Pelvic and perineal pain; M47.816 Spondylosis without myelopathy or radiculopathy, lumbar region; I65.02 Occlusion and stenosis of left vertebral artery; D72.829 Elevated white blood cell count, unspecified; Z79.82 Long term (current) use of aspirin; M25.551 Pain in right hip; E87.1 Hypo-osmolality and hyponatremia; R47.02 Dysphasia